=== PATIENT | female | born 1940 | race Caucasian/White ===

== ENCOUNTER 2023-04-08 20:12 | Inpatient (IN) | payer BC, MEDICARE ==
[2023-04-08] MEDS ORDERED: NITROGLYCERIN OINT 1 INCH/GM PACKET TOPICAL STA (20:44)
[2023-04-08] MEDS ORDERED: ASPIRIN 81 MG PO STA (20:44)
[2023-04-08 20:58] LABS: Basophils % (A) 0 %; Eosinophils # (A) 0.1 k/uL (0-0.7); Eosinophils % (A) 1 %; HCT 48.4 % (34.0-46.0); HGB 16.1 gm/dL (11.4-16.0); Lymphocytes # (A) 1.7 k/uL (1.0-4.8); Lymphocytes % (A) 19 %; MCH 31.2 pg (25.0-35.0); MCHC 33.3 g/dL (31.0-37.0); MCV 93.8 fL (80.0-100.0); Mean Platelet Volume 7.9; Monocytes # (A) 0.6 k/uL (0-1.0); Monocytes % (A) 6 %; Neutrophils # (A) 6.6 k/uL (1.3-7.7); Neutrophils % (A) 72 %; Platelet Count 322 k/uL (150-450); RBC 5.16 m/uL (3.80-5.40); RDW 12.4 % (11.5-15.5); WBC 9.2 k/uL (3.8-10.6)
[2023-04-08 21:07] LABS: Partial Thromboplastin Time 23.9 sec (22.0-30.0); Prothrombin Time 10.2 sec (9.0-12.0)
[2023-04-08] MEDS ORDERED: DILTIAZEM 125 MG in SODIUM CHLORIDE 0.9% 100 ML IV SCH (21:15)
[2023-04-08 21:28] LABS: ALT 23 U/L (4-34); AST 56 U/L (14-36); African American GFR (CKD) 68 (>60 ml/min/1.73 sqM); Alkaline Phosphatase 55 U/L (38-126); Anion Gap 10 mmol/L; Blood Urea Nitrogen 20 mg/dL (7-17); Calcium 9.9 mg/dL (8.4-10.2); Carbon Dioxide 25 mmol/L (22-30); Chloride 98 mmol/L (98-107); Magnesium 1.9 mg/dL (1.6-2.3); Non-African American GFR(CKD) 59 (>60 ml/min/1.73 sqM); Potassium 5.2 mmol/L (3.5-5.1); Sodium 133 mmol/L (137-145); Total Bilirubin 1.3 mg/dL (0.2-1.3); Total Protein 8.4 g/dL (6.3-8.2)
[2023-04-08] MEDS ORDERED: LABETALOL 5 MG/ML VIAL MDV IVP STA (21:28)
[2023-04-08 21:48] LABS: Glucose 122 mg/dL (74-99)
--- NOTE | 2023-04-08 22:20 | XR ---
EXAMINATION TYPE: XR chest 2V DATE OF EXAM: 04/08/2023 9:56 PM COMPARISON: None TECHNIQUE: XR chest 2V Frontal and lateral views of the chest. CLINICAL INDICATION:Female, 82 years old with history of Chest Pain; FINDINGS: Lungs/Pleura: Prominent interstitial lung markings are seen scattered throughout the lungs. No eviden ce of focal consolidation, pneumothorax or pleural effusion. Pulmonary vascularity: Unremarkable. Heart/mediastinum: Cardiomediastinal silhouette is unremarkable. Musculoskeletal: No acute osseous pathology. IMPRESSION: No acute cardiopulmonary disease/process.
[2023-04-08] MEDS ORDERED: HEPARIN SODIUM 1,000 UN/ML (10ML VL) IV ONE (22:44)
[2023-04-08] MEDS ORDERED: HEPARIN SODIUM 1,000 UN/ML (10ML VL) IV PRN (22:44)
--- NOTE | 2023-04-08 22:47 | ED ---
Chest Pain HPI - General Chief Complaint: Chest Pain Stated Complaint: Chest Pain Time Seen by Provider: 04/08/23 20:33 Source: patient Mode of arrival: ambulatory Limitations: no limitations - History of Present Illness Initial Comments: This 82-year-old female presents with complaint of some chest pressure. This is in the midsternal region. She also was feeling somewhat weak. This occurred shortly prior to arrival. She does present with elevated heart rate mode appears to be atrial fibrillation with rapid ventricular response. She denies any history of atrial fibrillation or any history of previous cardiac arrhythmias. She denies any nausea, vomiting, fevers, chills. She does complain of some mild shortness of breath. The pain did apparently radiate up into her jaw region. She relates a history of previous myocardial infarction in 2008 with 4 cardiac stents placed at that time. She has followed up with a associate professor in the past and had a negative stress test in the fall of 2021. She has an appointment to follow-up with Dr. Infante next month. She denies any leg pain or swelling or history DVT or PE. No other complaints or modifying factors. - Related Data Home Medications Medication Instructions Recorded Confirmed Brinzolamide/Brimonidine Tart 1 drop RIGHT EYE BID 04/08/23 04/08/23 [Simbrinza 1%-0.2% Eye Drops] Ezetimibe [Zetia] 10 mg PO HS 04/08/23 04/08/23 Latanoprost [Latanoprost 0.005%] 1 drop RIGHT EYE HS 04/08/23 04/08/23 Olmesartan Medoxomil [Benicar] 40 mg PO HS 04/08/23 04/08/23 Allergies Allergy/AdvReac Type Severity Reaction Status Date / Time nickel Allergy Rash/Hives Verified 04/08/23 22:26 [id number] Reductase AdvReac Muscle/Joint Verified 04/08/23 22:26 Inhibitor pain all over Review of Systems ROS Statement: Those systems with pertinent positive or pertinent negative responses have been documented in the HPI. ROS Other: All systems not noted in ROS Statement are negative. Past Medical History Past Medical History: Coronary Artery Disease (CAD), Hyperlipidemia, Hypertension Additional Past Medical History / Comment(s): scoliosis History of Any Multi-Drug Resistant Organisms: None Reported Past Surgical History: Heart Catheterization With Stent Past Psychological History: No Psychological Hx Reported Smoking Status: Never smoker Past Alcohol Use History: None Reported Past Drug Use History: None Reported General Exam - General Exam Comments Initial Comments: GENERAL: The patient is well nourished and well hydrated. VITAL SIGNS: Heart rate, blood pressure, respiratory rate reviewed as recorded in nurse's notes. EYES: Pupils are round and reactive. Extraocular movements are intact. No conjunctival / lid redness or swelling. ENT: No external evidence of injury, swelling, or ecchymosis. Airway is patent. Throat is clear. NECK: Nontender. No swelling or evidence of injury. No subcutaneous emphysema. Trachea is midline. No thyroid mass. HEART: Tachycardic irregular rate which later resolved. Good peripheral pulses. LUNGS/CHEST: Breath sounds clear and equal bilaterally. No rales, rhonchi, or wheezes. No ecchymosis, subcutaneous emphysema, or tenderness. ABDOMEN: Abdomen soft without tenderness. No palpable masses or organomegaly. No peritoneal signs. No abdominal wall swelling or ecchymosis. EXTREMITIES: No extremity tenderness. Normal muscle tone and function. No thoracolumbar tenderness. NEUROLOGIC: Sensation is grossly intact. Cranial nerve exam reveals face is symmetrical, tongue is midline, speech is clear. SKIN: No abrasions or ecchymosis is noted. No induration or masses noted. PSYCHIATRIC: Alert and oriented. Appropriate behavior and judgment. Limitations: no limitations Course Vital Signs 04/08/23/04/25 06/04/25 20:13 21:15 21:40 Temperature 98.0 F Pulse Rate 99 86 68 Respiratory 20 20 22 Rate Blood Pressure 181/113 198/118 173/85 O2 Sat by Pulse 98 98 98 Oximetry Chest Pain MDM - MDM The patient was seen and examined. All diagnostics were reviewed. When she initially presented, cafeteria monitor does show a tachycardic and somewhat irregular rhythm. The EKG shows atrial fibrillation with rapid ventricular response at a rate of 133. His wide complex QRSs as well per minute drip rotation. The patient has associated ST and T-wave changes likely rate dependent. The QRS duration is 152 and the QTc interval is 399. Prior to s tarting a Cardizem drip, her cardiac arrhythmia spontaneously resolves. She has a repeat EKG which shows a normal sinus rhythm at a rate of 66 with sinus arrhythmia. There is no acute ST or T wave changes noted per my interpretation. There is no ST elevation. The [place] interval is 160, QRS duration is 82, and the QTC intervals 463. Her blood pressure was severely elevated and she does receive labetalol 20 mg IV. She also receives aspirin as well as Nitropaste. Her laboratory shows elevation of her troponin which potentially could be related to the tachycardic event. The possibility of a non-ST elevation myocardial infarction certainly is plausible as well. She started on a heparin drip. Chest x-ray does not show any acute processes per my interpretation and radiologists barely does agree as well. On recheck after spontaneous conversion, she relates that her symptoms have all resolved and she feels back to normal at this time. It is felt as though she benefit from admission to the hospital. She is agreeable with this plan. Case is discussed with internal medicine and they're agreeable to admission. Her blood pressure was significantly improved as well. Cardiology will be consulted. Was pt. sent in by a medical professional or institution (, PA, PIGMENT PUMPER, urgent care, hospital, or senior living...) When possible be specific @ -No Did you speak to anyone other than the patient for history (EMS, parent, family, police, friend...)? What history was obtained from this source @ -Patient's family member also helps with history. Did you review nursing and triage notes (agree or disagree)? Why? @ -I reviewed and agree with nursing and triage notes Were old charts reviewed (outside hosp., previous admission, EMS record, old EKG, old radiological studies, urgent care reports/EKG's, senior living records)? Report findings @ -No old charts were reviewed Differential Diagnosis (chest pain, altered mental status, abdominal pain women, abdominal pain men, vaginal bleeding, weakness, fever, dyspnea, syncope, headache, dizziness, GI bleed, back pain, seizure, CVA, palpatations, mental health, musculoskeletal)? @ -Atrial fibrillation, ventricular tachycardia, atrial fibrillation with rapid ventricular response, chest pain, non-ST elevation myocardial infarction, hypertensive crisis EKG interpreted by me (3pts min.). @ -As above X-rays interpreted by me (1pt min.). @ -Negative CT interpreted by me (1pt min.). @ -None done U/S interpreted by me (1pt. min.). @ -None done What testing was considered but not performed or refused? (CT, X-rays, U/S, labs)? Why? @ -None What meds were considered but not given or refused? Why? @ -Heart is in drip was considered but not started as patient spontaneously converted. Did you discuss the management of the patient with other professionals (professionals i.e. , PA, PIGMENT PUMPER, lab, RT, psych nurse, social services manager, lump receiver, teacher, uniform patrol police officer, special education case manager)? Give summary @ -This is discussed with Dr. Helton who is agreeable with admission. Was smoking cessation discussed for >3mins.? @ -No Was critical care preformed (if so, how long)? @ -30 minutes of critical care time was utilized and the treatment of the patient. Were there social determinants of health that impacted care today? How? (Homelessness, low income, unemployed, alcoholism, drug addiction, transportation, low edu. Level, literacy, decrease access to med. care, nursing home, rehab)? @ -No Was there de-escalation of care discussed even if they declined (Discuss DNR or withdrawal of care, Hospice)? DNR status @ -No What co-morbidities impacted this encounter? (DM, HTN, Smoking, COPD, CAD, Cancer, CVA, ARF, Chemo, Hep., AIDS, mental health diagnosis, sleep apnea, morbid obesity)? @ -Myocardial infarction and coronary artery disease with 4 previous cardiac stents. Was patient admitted / discharged? Hospital course, mention meds given and route, prescriptions, significant lab abnormalities, going to OR and other pertinent info. @ -Patient is admitted with cardiology to consult. Undiagnosed new problem with uncertain prognosis? @ -No Drug Therapy requiring intensive monitoring for toxicity (Heparin, Nitro, Insulin, Cardizem)? @ -No Were any procedures done? @ -No Diagnosis/symptom? @ -Atrial fibrillation with rapid ventricular response, non-ST elevation myocardial infarction, hypertensive crisis Acute, or Chronic, or Acute on Chronic? @ -Acute Uncomplicated (without systemic symptoms) or Complicated (systemic symptoms)? @ -Complicated Side effects of treatment? @ -No Exacerbation, Progression, or Severe Exacerbation? @ -No Poses a threat to life or bodily function? How? (Chest pain, [place], [place], pneumonia, PE, COPD, DKA, ARF, appy, cholecystitis, CVA, Diverticulitis, Homicidal, Suicidal, threat to staff... and all critical care pts) @ -Yes a cardiac arrhythmia presents to threat to life and bodily function. Disposition Clinical Impression: Acute non-ST elevation myocardial infarction (NSTEMI), Atrial fibrillation with rapid ventricular response, Hypertensive crisis, Chest pain Disposition: ADMITTED IP TO THIS HOSP Condition: Fair Is patient prescribed a controlled substance at d/c from ED?: No Time of Disposition: 22:46 Decision Date: 04/08/23 Decision Time: 22:47
[2023-04-08] MEDS: HEPARIN SOD,PORK IN 0.45% NACL 25,000 UNIT in 0.45% NACL 1 250ML.BAG IV SCH (23:09)
[2023-04-08] MEDS ORDERED: NITROGLYCERIN SL TABS 0.4 MG TAB SUBLINGUAL PRN (23:13)
--- NOTE | 2023-04-09 00:44 | P.HPIM ---
History of Present Illness H&P Date: 04/09/23 The patient is an 82-year-old female with a PMH of CAD status post 4 stents, hypertension, and upper lipidemia who presents to the emergency room with complaints of chest pain, shortness of breath, and jaw pain. Patient reports that her symptoms started around 5:30 PM earlier today while she was out shopping. She reports that she suddenly developed severe shortness of breath and chest tightness. The symptoms lasted for about 30 minutes and she then developed jaw claudication subsequently also lasted for about 15-20 minutes before resolving spontaneously. At time of interview, she reports feeling at her baseline and had no complaints. Denied experiencing fever or chills. Denied cough, nausea, vomiting, melena, diarrhea. Denied lower extremity swelling or pain. EKG in the emergency room and initially revealed A. fib with RVR at 133 bpm with a left bundle branch block. Subsequent EKG revealed sinus rhythm with sinus arrhythmia at 66 bpm. CXR was unremarkable. Laboratory evaluation revealed a troponin of 0.727, proBNP 1400, Humulin 16.1, sodium 133, potassium 5.2, BUN 20, glucose 122. ED documentation reviewed and case discussed with ED provider. Review of systems: Pertinent positives and negatives as discussed in HPI, a complete review of systems was performed and all other systems are negative. Physical examination: Vital signs reviewed General: non toxic, no distress, appears at stated age, overweight Derm: no unusual rashes/lesions, warm Head: atraumatic, normocephalic, symmetric Eyes: EOMI, no lid lag, anicteric sclera, pupils equal round reactive to light ENT: Nose and ears atraumatic Neck: No cervical lymphadenopathy, trachea midline, supple Mouth: no lip lesion, mucus membranes moist Cardiovascular: S1S2 reg, no murmur, positive dorsalis pedis pulse bilateral, no edema Lungs: CTA bilateral, no rhonchi, no rales, no accessory muscle use Abdominal: soft, nontender to palpation, no guarding Ext: muscle strength 5 out of 5 in all 4 extremities grossly, no gross muscle atrophy, no contractures, Neuro: CN II-XI grossly intact, no gross focal neuro deficits Psych: Alert, oriented, appropriate affect Assessment: NSTEMI Chronic conditions: HTN, HLD Imaging: EKG in the emergency room and initially revealed A. fib with RVR at 133 bpm with a left bundle branch block. Subsequent EKG revealed sinus rhythm with sinus arrhythmia at 66 bpm. CXR was unremarkable. Data Review: Laboratory evaluation revealed a troponin of 0.727, proBNP 1400, Humulin 16.1, sodium 133, potassium 5.2, BUN 20, glucose 122. Plan: Continue with heparin infusion Cardiac monitoring Trend troponin Cardiogenic consulted Echocardiogram Continue aspirin Continue the remaining home medications DVT prophylaxis: Heparin infusion The patient is admitted with an anticipated greater than 2 midnight stay for evaluation of NSTEMI CODE STATUS: Full Code Discussed with: Patient Anticipated discharge place: Home Past Medical History Past Medical History: Coronary Artery Disease (CAD), Hyperlipidemia, Hypertension Additional Past Medical History / Comment(s): scoliosis History of Any Multi-Drug Resistant Organisms: None Reported Past Surgical History: Heart Catheterization With Stent Past Psychological History: No Psychological Hx Reported Smoking Status: Never smoker Past Alcohol Use History: None Reported Past Drug Use History: None Reported - Past Family History Brother(s) Family Medical History: Congestive Heart Failure (CHF), Coronary Artery Disease (CAD) Medications and Allergies Home Medications Medication Instructions Recorded Confirmed Type Brinzolamide/Brimonidine Tart 1 drop RIGHT EYE BID 04/08/23 04/08/23 History [Simbrinza 1%-0.2% Eye Drops] Ezetimibe [Zetia] 10 mg PO HS 04/08/23 04/08/23 History Latanoprost [Latanoprost 0.005%] 1 drop RIGHT EYE HS 04/08/23 04/08/23 History Olmesartan Medoxomil [Benicar] 40 mg PO HS 04/08/23 04/08/23 History Allergies Allergy/AdvReac Type Severity Reaction Status Date / Time nickel Allergy Rash/Hives Verified 04/08/23 22:26 [id number] Reductase AdvReac Muscle/Joint Verified 04/08/23 22:26 Inhibitor pain all over Physical Exam Vitals: Vital Signs Temp Pulse Resp BP Pulse Ox 04/08/23 21:40 68 22 173/85 98 04/08/23 21:15 86 20 198/118 98 04/08/23 20:13 98.0 F 99 20 181/113 98 Intake and Output 04/08/23 04/08/23 04/09/23 14:59 22:59 06:59 Other: Weight 76.204 kg Results CBC & Chem 7: 04/08/23 20:51 04/08/23 20:51 Labs: Abnormal Lab Results - Last 24 Hours (Table) 04/08/23 04/08/23 04/08/23 Range/Units 20:51 20:51 20:51 Hgb 16.1 H (11.4-16.0) gm/dL Hct 48.4 H (34.0-46.0) % Sodium 133 L (137-145) mmol/L Potassium 5.2 H (3.5-5.1) mmol/L BUN 20 H (7-17) mg/dL Glucose 122 H (74-99) mg/dL AST 56 H (14-36) U/L Troponin I 0.727 H* (0.000-0.034) ng/mL Total Protein 8.4 H (6.3-8.2) g/dL
[2023-04-09] MEDS: NITROGLYCERIN OINT 1 INCH/GM PACKET TOPICAL SCH ×3 (01:04→15:24)
[2023-04-09 05:27] LABS: Basophils % (A) 0 %; Eosinophils # (A) 0.1 k/uL (0-0.7); Eosinophils % (A) 1 %; HCT 42.2 % (34.0-46.0); HGB 13.9 gm/dL (11.4-16.0); Lymphocytes # (A) 2.8 k/uL (1.0-4.8); Lymphocytes % (A) 38 %; MCH 31.5 pg (25.0-35.0); MCHC 33.1 g/dL (31.0-37.0); MCV 95.2 fL (80.0-100.0); Monocytes # (A) 0.5 k/uL (0-1.0); Monocytes % (A) 7 %; Neutrophils # (A) 3.7 k/uL (1.3-7.7); Neutrophils % (A) 51 %; Platelet Count 294 k/uL (150-450); RBC 4.43 m/uL (3.80-5.40); RDW 12.4 % (11.5-15.5); WBC 7.3 k/uL (3.8-10.6)
[2023-04-09 05:54] LABS: INR 1.1 (<1.2)
[2023-04-09 06:30] LABS: Partial Thromboplastin Time 103.9 sec (22.0-30.0)
[2023-04-09] MEDS ORDERED: ASPIRIN 325 MG TAB PO SCH (09:00)
[2023-04-09] MEDS: METOPROLOL TARTRATE 25 MG TAB PO SCH ×2 (09:12→21:23)
[2023-04-09] MEDS: ASPIRIN 81 MG PO SCH (09:12)
[2023-04-09] MEDS: BRIMONIDINE TARTRATE 0.2% DROPS 5 ML BTL RIGHT EYE SCH ×2 (09:22→21:25)
[2023-04-09] MEDS: LOSARTAN 50 MG TAB PO SCH (09:23)
[2023-04-09] MEDS: DORZOLAMIDE HCL 2% DROPS 10 ML BTL RIGHT EYE SCH ×2 (09:23→21:25)
[2023-04-09] MEDS ORDERED: ASPIRIN 325 MG TAB PO STA (09:39)
[2023-04-09] MEDS ORDERED: NITROGLYCERIN SL TABS 0.4 MG TAB SUBLINGUAL PRN (09:39)
[2023-04-09] MEDS ORDERED: ALPRAZolam 0.25 MG TAB PO PRN (09:39)
[2023-04-09] MEDS ORDERED: ALPRAZolam 0.5 MG TAB PO PRN (09:39)
[2023-04-09] MEDS ORDERED: HEPARIN SODIUM 1,000 UN/ML (10ML VL) ONE (09:56)
[2023-04-09] MEDS ORDERED: VERAPAMIL 2.5 MG/ML 2 ML AMP ONE (09:56)
[2023-04-09] MEDS ORDERED: fentaNYL (PF) 50 MCG/ML 2 ML AMP ONE (09:56)
--- NOTE | 2023-04-09 10:42 | CA ---
Transthoracic Echo Report Name: Deborah Werner Age: 82 Gender: F : 1940 Exam Date: 04/09/2023 08:07 Exam Location: [facility] Ht (in): 67 Wt (lb): 168 Ordering Physician: Juan Miguel Moore DO Attending/Referring Phys: [id number], Teresa Cupola Charger Daryl Otto Procedure CPT: Indications: CP Cardiac Hx: Technical Quality: Good Contrast 1: Total Dose (mL): Contrast 2: Total Dose (mL): MEASUREMENTS (Male / Female) Normal Values 2D ECHO LV Diastolic Diameter PLAX 4.2 cm 4.2 - 5.9 / 3.9 - 5.3 cm IVS Diastolic Thickness 1.3 cm 0.6 - 1.0 / 0.6 - 0.9 cm LVPW Diastolic Thickness 1.4 cm 0.6 - 1.0 / 0.6 - 0.9 cm LV Relative Wall Thickness 0.6 RV Internal Dim ED PLAX 2.7 cm LVOT Diameter 2.0 cm Aortic Root Diameter 3.4 cm LA Systolic Diameter LX 1.9 cm 3.0 - 4.0 / 2.7 - 3.8 cm LV Diastolic Volume MOD BP 56.9 cm??? 67 - 155 / 56 - 104 cm??? LV Systolic Volume MOD BP 27.4 cm??? 22 - 58 / 19 - 49 cm??? LV Ejection Fraction MOD BP 51.9 % >= 55 % LV Diastolic Volume MOD 4C 54.5 cm??? LV Systolic Volume MOD 4C 26.5 cm??? LV Ejection Fraction MOD 4C 51.3 % LV Diastolic Length 4C 6.1 cm LV Systolic Length 4C 6.0 cm LV Diastolic Volume MOD 2C 55.2 cm??? LV Systolic Volume MOD 2C 26.9 cm??? LV Ejection Fraction MOD 2C 51.3 % LV Diastolic Length 2C 6.7 cm LV Systolic Length 2C 5.7 cm LA Volume 76.1 cm??? 18 - 58 / 22 - 52 cm??? DOPPLER AV Peak Velocity 144.4 cm/s AV Peak Gradient 8.3 mmHg LVOT Peak Velocity 76.2 cm/s LVOT Peak Gradient 2.3 mmHg AV Area Cont Eq pk 1.7 cm??? MV Peak Velocity 113.9 cm/s MV Peak Gradient 5.2 mmHg MV Mean Velocity 53.7 cm/s MV Mean Gradient 1.5 mmHg MV Velocity Time Integral 46.6 cm MR Peak Velocity 528.2 cm/s MR Peak Gradient 111.6 mmHg Mitral E Point Velocity 99.3 cm/s Mitral A Point Velocity 96.1 cm/s Mitral E to A Ratio 1.0 MV Deceleration Time 339.0 ms MV E' Velocity 3.9 cm/s Mitral E to MV E' Ratio 25.3 TR Peak Velocity 250.6 cm/s TR Peak Gradient 25.1 mmHg Right Ventricular Systolic Press 30.5 mmHg PV Peak Velocity 102.5 cm/s PV Peak Gradient 4.2 mmHg FINDINGS Left Ventricle Left ventricular ejection fraction is estimated at _50-55 %. Mild Conc LVH. Right Ventricle Normal right ventricular size. RVSP= 39mmhg. Right Atrium Normal right atrial size. Left Atrium Normal left atrial size. Mitral Valve Mild MV thickening. Mild to moderate MR.No mitral stenosis. Aortic Valve Mild AV calcification.no aortic valve stenosis or regurgitation. Tricuspid Valve Structurally normal tricuspid valve. Mild TR. Pulmonic Valve Structurally normal pulmonic valve. Trace PI. Pericardium Normal pericardium. Aorta Normal size aortic root and proximal ascending aorta. CONCLUSIONS Normal LV systolic function [id number] mitral regurgitation Previewed by: Dr. Richard Infante MD (Electronically Signed) Final Date: 09 April 2023 10:41
[2023-04-09] MEDS: MIDAZOLAM 2 MG/2 ML VIAL IVP ONE ×2 (10:52→11:46)
[2023-04-09] MEDS: fentaNYL (PF) 50 MCG/ML 2 ML AMP IVP ONE ×2 (10:52→11:45)
[2023-04-09] MEDS ORDERED: LIDOCAINE 1% INJ 10MG/ML (5 ML VIAL-PF) SQ ONE (10:53)
[2023-04-09] MEDS: VERAPAMIL SYRINGE (5 MG/10 ML) INTRAARTER ONE ×2 (10:54→10:59)
[2023-04-09] MEDS ORDERED: VERAPAMIL SYRINGE (5 MG/10 ML) INTRAARTER ONE (10:59)
[2023-04-09] MEDS ORDERED: SODIUM CHLORIDE 0.9% 500 ML 500 ML IV ONE (11:00)
[2023-04-09] MEDS: HEPARIN SODIUM 1,000 UN/ML (10ML VL) IVP ONE ×3 (11:04→11:30)
[2023-04-09] MEDS ORDERED: CLOPIDOGREL 75 MG TAB ONE (11:21)
[2023-04-09] MEDS ORDERED: CLOPIDOGREL 75 MG TAB PO ONE (11:26)
[2023-04-09] MEDS ORDERED: hydrALAZINE HCL 20 MG/ML 1 ML VIAL ONE (11:37)
[2023-04-09] MEDS: hydrALAZINE HCL 20 MG/ML 1 ML VIAL IVP ONE ×2 (11:38→11:47)
[2023-04-09 11:51] LABS: Chol/HDL Ratio 3.83 Ratio; LDL Cholesterol,Calculated 142.2 mg/dL (0.0-131.0)
[2023-04-09] MEDS ORDERED: NITROGLYCERIN 1000MCG/10ML SYRINGE INTRAARTER ONE (11:51)
[2023-04-09] MEDS ORDERED: IOPAMIDOL-370 100ML BTL INJ ONE ×2 (11:51→11:58)
[2023-04-09] MEDS ORDERED: ZOLPIDEM 5 MG TAB PO PRN (12:19)
[2023-04-09] MEDS ORDERED: RX INFO: IV CONTRAST WAS GIVEN 1 EACH MISC MISCELLANE PRN (12:19)
[2023-04-09] MEDS ORDERED: ATROPINE SULFATE 0.1 MG/ML 10ML SYRINGE IV PRN (12:19)
[2023-04-09] MEDS ORDERED: MAG HYDROX/AL HYDROX/SIMETH 30 ML CUP PO PRN (12:19)
--- NOTE | 2023-04-09 12:21 | P.CRDCN ---
History of Present Illness Consult date: 04/09/23 Reason for Consult (text): Hypertensive crisis, non-ST elevated RI, atrial fibrillation History of present illness: History of present illness: This is an 82-year-old female but does not follow with local cobol application developer. She was previously following with the cobol application developer in [place] and has not appointment to be stat established with Dr. Infante in May. Patient has past medical history of myocardial infarction and 4 stents placed in 2008 in [place], reported carotid stenosis, atrial fibrillation following [place] not currently on any medications for this, hypertension. Patient states that she has had increasing dyspnea on exertion worsening over the past year. She was able to walk 8-10 blocks and now can only make it to the mailbox. Yesterday, she was walking out of [facility] and developed significant jaw pain and felt like her teeth were going to fall out continue patient on aspirin 81 mg daily, Lopressor 25 mg twice daily. She denies any chest pain. She had significant shortness of breath with the jaw pain. No lightheadedness or dizziness, no nausea. She denies feeling any palpitations or racing heart. She denies history of smoking no alcohol abuse. There is a strong family history of coronary artery disease. Patient presented with A. fib with RVR and converted while in the emergency center not requiring Cardizem drip. Patient is seen today in the emergency center waiting for a bed on the cardiac stepdown unit. EKG initial A. fib with RVR 133 bpm, repeat sinus rhythm with nonspecific ST changes Chest x-ray: No acute process CBC within normal limits. Sodium 133, potassium 5.2, chloride 98, CO2 25, BUN 20 creatinine 0.92. Troponin 0.77, 6.52, I'm 0.46, 11.6. ProBNP 1400. Triglycerides 102, cholesterol 220, LDL 142, HDL 57 Echocardiogram 04/09/2023: EF 50-55%, [id number] mitral regurgitation. Home cardiac medications: Zetia 10 mg at bedtime, Benicar 40 mg at bedtime Review Of Systems: At the time of my evaluation: Constitutional: No fever, no chills. No weakness, fatigue or lethargy. EENT: No headache. No dizziness. Lungs: No shortness of breath, cough, no sputum production. No wheezing. Cardiovascular: No chest pain, no lower extremity edema. No palpitations. No paroxysmal nocturnal dyspnea. No orthopnea. No lightheadedness or dizziness. No syncopal episodes. Abdominal: No abdominal pain. No nausea, vomiting. No diarrhea. No constipation. No bloody or tarry stools. Genitourinary: No dysuria.. No urinary retention. Musculoskeletal: No myalgias. No muscle weakness, no frequent falls. No back pain. No neck pain. Integumentary: No wounds. No rash. No unusual bruising. Neurologic: No aphasia. No facial droop. No change in mentation. No head injury. No headache. Physical examination: Gen: This is an 82 year old female. She is resting on ER stretcher and appears to be comfortable and in no acute distress VS: reviewed HEENT: Head is atraumatic, normocephalic. Pupils equal, round. Sclerae is anicteric. NECK: Supple. No JVD. LUNGS: Clear to auscultation. No wheezes or rhonchi. No intercostal retractions. HEART: Regular rate and rhythm. Systolic urmur. ABDOMEN: Soft No tenderness. EXTREMITIES: No pedal edema. No calf tenderness. NEUROLOGICAL: Patient is awake, alert and oriented x3. Assessment: A. fib with RVR, paroxysmal atrial fibrillation Non-ST elevated myocardial infarction Hypertension Hyperlipidemia unable to tolerate statin History of coronary artery disease and stent placement 4 Plan: Schedule patient for cardiac catheterization today with Dr. Henning Continue patient on aspirin 81 mg daily, Zetia 10 mg daily, patient unable to tolerate statin Continue losartan 100 mg daily and Lopressor 25 mg twice daily Discontinue nitro paste Further recommendations to follow based upon clinical course Thank you kindly for this consultation. Nurse practitioner note has been reviewed, I agree with documented findings and plan of care. Patient was seen and examined. Past Medical History Past Medical History: Coronary Artery Disease (CAD), Hyperlipidemia, Hypertension Additional Past Medical History / Comment(s): scoliosis History of Any Multi-Drug Resistant Organisms: None Reported Past Surgical History: Heart Catheterization With Stent Past Psychological History: No Psychological Hx Reported Smoking Status: Never smoker Past Alcohol Use History: None Reported Past Drug Use History: None Reported - Past Family History Brother(s) Family Medical History: Congestive Heart Failure (CHF), Coronary Artery Disease (CAD) Medications and Allergies Home Medications Medication Instructions Recorded Confirmed Type Brinzolamide/Brimonidine Tart 1 drop RIGHT EYE BID 04/08/23 04/08/23 History [Simbrinza 1%-0.2% Eye Drops] Ezetimibe [Zetia] 10 mg PO HS 04/08/23 04/08/23 History Latanoprost [Latanoprost 0.005%] 1 drop RIGHT EYE HS 04/08/23 04/08/23 History Olmesartan Medoxomil [Benicar] 40 mg PO HS 04/08/23 04/08/23 History Allergies Allergy/AdvReac Type Severity Reaction Status Date / Time nickel Allergy Rash/Hives Verified 04/08/23 22:26 [place]-AFE-KqK Reductase AdvReac Muscle/Joint Verified 04/08/23 22:26 Inhibitor pain all over Physical Exam Vitals: Vital Signs Temp Pulse Resp BP Pulse Ox 04/09/23 09:00 66 18 169/72 97 04/09/23 06:00 67 17 150/86 96 04/09/23 05:00 71 18 145/73 97 04/09/23 04:00 63 15 145/82 96 04/09/23 03:00 70 20 150/78 95 04/09/23 02:00 63 18 147/74 96 04/09/23 01:00 71 18 145/72 96 04/09/23 00:30 58 L 18 135/73 97 04/09/23 00:00 67 140/73 96 04/08/23 23:57 58 L 140/73 96 04/08/23 21:40 68 22 173/85 98 04/08/23 21:15 86 20 198/118 98 04/08/23 20:13 98.0 F 99 20 181/113 98 Intake and Output 04/08/23 04/09/23 04/09/23 22:59 06:59 14:59 Intake Total 67.361 0 Balance 67.361 0 Intake: Intake, IV Titration 67.361 0 Amount Heparin Sod,Pork in 0.45% 67.361 0 NaCl 25,000 unit In 0.45 % NaCl 1 250ml.bag @ 12 UNITS/KG/HR 9.144 mls/hr IV .Q24H [facility] Rx#: [id number] Other: Weight 76.204 kg Results 04/09/23 05:09 04/08/23 20:51 Cardiac Enzymes 04/08/23 04/08/23 04/09/23 Range/Units 20:51 20:51 00:11 AST 56 H (14-36) U/L Troponin I 0.727 H* 6.520 H* (0.000-0.034) ng/mL 04/09/23 04/09/23 Range/Units 02:20 05:09 AST (14-36) U/L Troponin I 9.460 H* 11.600 H* (0.000-0.034) ng/mL Coagulation 04/08/23 04/09/23 Range/Units 20:51 05:09 PT 10.2 11.0 (9.0-12.0) sec APTT 23.9 103.9 H* (22.0-30.0) sec CBC 04/08/23 04/09/23 Range/Units 20:51 05:09 WBC 9.2 7.3 (3.8-10.6) k/uL RBC 5.16 4.43 (3.80-5.40) m/uL Hgb 16.1 H 13.9 (11.4-16.0) gm/dL Hct 48.4 H 42.2 (34.0-46.0) % Plt Count 322 294 (150-450) k/uL Comprehensive Metabolic Panel 04/08/23 Range/Units 20:51 Sodium 133 L (137-145) mmol/L Potassium 5.2 H (3.5-5.1) mmol/L Chloride 98 (98-107) mmol/L Carbon Dioxide 25 (22-30) mmol/L BUN 20 H (7-17) mg/dL Creatinine 0.92 (0.52-1.04) mg/dL Glucose 122 H (74-99) mg/dL Calcium 9.9 (8.4-10.2) mg/dL AST 56 H (14-36) U/L ALT 23 (4-34) U/L Alkaline Phosphatase 55 (38-126) U/L Total Protein 8.4 H (6.3-8.2) g/dL Albumin 5.0 (3.5-5.0) g/dL Current Medications Generic Name Dose Route Start Last Admin Trade Name Freq PRN Reason Stop Dose Admin Aspirin 81 mg 04/09/23 09:00 04/09/23 09:12 Aspirin 81 Mg PO 81 mg DAILY [facility] Administration Brimonidine Tartrate 1 drops 04/09/23 09:00 04/09/23 09:22 Brimonidine Tartrate 0.2% Drops 5 Ml Btl RIGHT EYE 1 drops BID [facility] Administration Dorzolamide HCl 1 drops 04/09/23 09:00 04/09/23 09:23 Dorzolamide Hcl 2% Drops 10 Ml Btl RIGHT EYE 1 drops BID [facility] Administration Ezetimibe 10 mg 04/09/23 21:00 Ezetimibe 10 Mg Tab PO HS [facility]YN Heparin Sodium (Porcine) 0 unit 04/08/23 22:44 Heparin Sodium 1,000 Un/Ml (10ml Vl) IV PER PROTOCOL PRN Low PTT Protocol Diltiazem HCl 125 mg/ Sodium 125 mls @ 0 mls/hr 04/08/23 21:15 Chloride IV .Q0M [facility]YN Protocol Per Protocol Heparin Sodium/Sodium Chloride 250 mls @ 9.144 mls/hr 04/08/23 22:45 04/09/23 09:04 25,000 unit/ Sodium Chloride IV 12 units/kg/hr .Q24H [facility] 9.144 mls/hr Titration Protocol 12 UNITS/KG/HR Latanoprost 1 drops 04/09/23 21:00 Latanoprost 0.005% Ophth Drops 2.5 Ml Btl RIGHT EYE HS [facility] Losartan Potassium 100 mg 04/09/23 09:15 04/09/23 09:23 Losartan 50 Mg Tab PO 100 mg DAILY ROBYN Administration Metoprolol Tartrate 25 mg 04/09/23 09:00 04/09/23 09:12 Metoprolol Tartrate 25 Mg Tab PO 25 mg BID [facility] Administration Nitroglycerin 0.4 mg 04/08/23 23:13 Nitroglycerin Sl Tabs 0.4 Mg Tab SUBLINGUAL Q5M PRN Chest Pain Nitroglycerin 1 inch 04/09/23 00:00 04/09/23 06:23 Nitroglycerin Oint 1 Inch/Gm Packet TOPICAL 1 inch Q6HR [facility] Administration Intake and Output 04/08/23 04/09/23 04/09/23 22:59 06:59 14:59 Intake Total 67.361 0 Balance 67.361 0 Intake: Intake, IV Titration 67.361 0 Amount Heparin Sod,Pork in 0.45% 67.361 0 NaCl 25,000 unit In 0.45 % NaCl 1 250ml.bag @ 12 UNITS/KG/HR 9.144 mls/hr IV .Q24H [facility] Rx#: [id number] Other: Weight 76.204 kg 04/09/23 05:09 04/08/23 20:51
--- NOTE | 2023-04-09 12:23 | P.PRCINT ---
Percutaneous Coronary Int. - Percutaneous Coronary Intervention Percutaneous Coronary Intervention: PROCEDURES PERFORMED: Left heart catheterization, bilateral coronary angiography, PCI mid to distal RCA with a 2.25 x 38mm Xience KELVIN, post dilated and balloon angioplasty instent stenosis with a 3.0 NC balloon, IVUS RCA INDICATION: Non-STEMI CONSENT:I have discussed the risks, benefits and alternative therapies for the above-mentioned procedure and for both sedation/analgesia as well as necessary blood product administration, if indicated, as they pertain to this patient. The patient has indicated understanding and acceptance of the risks and procedures discussed. PROCEDURE: After the risks, benefits and alternatives of the above mentioned procedure explained in detail with the patient, informed consent was obtained. Patient was taken to the catheterization lab and prepped and draped in usual fashion. 1% lidocaine was used to anesthetize the right radial artery. A 6- Azerbaijani sheath was placed in the right radial artery using modified Seldinger technique. Left coronary angiography was performed with a 5-Azerbaijani JL 3.5 and then 4.0 ncatheter and right coronary angiography was performed with a 5-Azerbaijani AR2 catheter in various views. A 5-Azerbaijani FR5 catheter was inserted into the left ventricle and pressure measurements were obtained. The decision was made to perform PCI of the RCA. Heparin was given for ACT greater than 250. A 6-Azerbaijani AL 0.75 guide was used to engage the RCA. A 0.014 BMW wire was advanced into the distal RCA. Next using the help of a Guideliner, and angioplasty was performed with 1.0 balloon. Next balloon angioplasty was performed with a 2.0 noncompliant balloon. Intravascular ultrasound was performed which showed a distal dissection around the site of the distal plaque, heavy calcification and reference vessel proximally approximately 4.0 cm and in the mid stent diffuse in-stent stenosis. Therefore a 2.25 x 38 mm Xience KELVIN was placed overlapping the existing stent. The stent was postdilated with a 3.0 noncompliant balloon. Repeat intravascular ultrasound was performed which showed good stent apposition, no dissection. The wire was pulled and final angiograms were performed. Pre-intervention there is 99% stenosis and CRUZ-3 flow and postintervention there was less than 10% stenosis with CRUZ 3 flow. The right radial sheath was removed and a TR band was placed with hemostasis achieved. The patient tolerated the procedure well. Patient was transported back to the post catheterization holding area in stable condition. Conscious Sedation: Patient was monitored under the direct supervision of myself for conscious sedation using Versed and fentanyl for a total duration of 68 minutes HEMODYNAMICS: Aorta: 172/63 LV: 171/3, LVEDP 16 SELECTIVE CORONARY ARTERIOGRAPHY: LEFT MAIN: The left main is a large caliber vessel which bifurcates into the LAD and circumflex. There is mild plaquing of the left main. LEFT ANTERIOR DESCENDING CORONARY ARTERY: LAD is a large caliber vessel which wraps around to the apex. There is diffuse proximal 30-40% stenosis of the LAD and a mid LAD 90% stenosis involving a small to moderate caliber diagonal branch. Otherwise there are mild luminal irregularities. LEFT CIRCUMFLEX CORONARY ARTERY: Left circumflex is a moderate caliber vessel. There is a small caliber OM1 branch with a 60% stenosis. 1 to is moderate caliber and has a proximal 50-60% stenosis. The distal circumflex has a 90% stenosis. The distal circumflex gives off a small caliber OM 3 branch. There is a mid circumflex stent with 40-50% in-stent stenosis. RIGHT CORONARY ARTERY: The right coronary artery is a large caliber vessel which gives off a PDA and PLV branch and is the dominant vessel. There is a proximal and mid RCA stents with diffuse 99% in-stent stenosis. The mid to distal RCA has diffuse 50-70% stenosis. FINAL IMPRESSION: 1. CAD as described above including 99% in-stent stenosis of the RCA, circumflex 90%, 90% mid LAD stenosis 2. S/p PCI mid to distal RCA with a 2.25 x 38mm Xience KELVIN, post dilated and balloon angioplasty instent stenosis with a 3.0 NC balloon 3. Normal left sided filling pressures PLAN: 1. Aggressive risk factor modification per most recent ACC/AHA guidelines. 2. Continue aspirin and Plavix for 12 months. 3. Staged PCI LAD and possibly circumflex
[2023-04-09] MEDS: SODIUM CHLORIDE 0.9% 1,000 ML IV SCH (15:24)
[2023-04-09] MEDS ORDERED: LOSARTAN 50 MG TAB PO SCH (21:00)
[2023-04-09] MEDS: EZETIMIBE 10 MG TAB PO SCH (21:22)
[2023-04-09] MEDS: LATANOPROST 0.005% OPHTH DROPS 2.5 ML BTL RIGHT EYE SCH (22:32)
[2023-04-10] MEDS: HEPARIN SOD,PORK IN 0.45% NACL 25,000 UNIT in 0.45% NACL 1 250ML.BAG IV SCH (05:29)
[2023-04-10] MEDS: SODIUM CHLORIDE 0.9% 1,000 ML IV SCH (05:36)
[2023-04-10] MEDS ORDERED: HEPARIN SODIUM,PORCINE 2,500 UNIT in SODIUM CHLORIDE 0.9% 250 ML IRRIGATION PRN (07:00)
[2023-04-10] MEDS ORDERED: HEPARIN SODIUM,PORCINE 10,000 UNIT in SODIUM CHLORIDE 0.9% 1,000 ML IRRIGATION PRN (07:00)
[2023-04-10] MEDS ORDERED: ACETAMINOPHEN TAB 325 MG TAB PO PRN (08:04)
[2023-04-10 08:25] LABS: Basophils % (A) 0 %; Eosinophils # (A) 0.1 k/uL (0-0.7); Eosinophils % (A) 1 %; HCT 44.4 % (34.0-46.0); HGB 14.6 gm/dL (11.4-16.0); Lymphocytes # (A) 1.9 k/uL (1.0-4.8); Lymphocytes % (A) 29 %; MCHC 32.8 g/dL (31.0-37.0); MCV 94.6 fL (80.0-100.0); Mean Platelet Volume 8.1; Monocytes # (A) 0.5 k/uL (0-1.0); Monocytes % (A) 7 %; Neutrophils # (A) 4.1 k/uL (1.3-7.7); Neutrophils % (A) 61 %; Platelet Count 307 k/uL (150-450); RBC 4.69 m/uL (3.80-5.40); RDW 12.6 % (11.5-15.5); WBC 6.7 k/uL (3.8-10.6)
[2023-04-10 08:40] LABS: African American GFR (CKD) 58 (>60 ml/min/1.73 sqM); Anion Gap 10 mmol/L; Blood Urea Nitrogen 17 mg/dL (7-17); Calcium 9.4 mg/dL (8.4-10.2); Carbon Dioxide 22 mmol/L (22-30); Chloride 101 mmol/L (98-107); Glucose 99 mg/dL (74-99); Non-African American GFR(CKD) 51 (>60 ml/min/1.73 sqM); Potassium 4.2 mmol/L (3.5-5.1); Sodium 133 mmol/L (137-145)
[2023-04-10] MEDS: CLOPIDOGREL 75 MG TAB PO SCH (09:25)
[2023-04-10] MEDS: METOPROLOL TARTRATE 25 MG TAB PO SCH ×2 (09:25→20:40)
[2023-04-10] MEDS: ASPIRIN 81 MG PO SCH (09:26)
[2023-04-10] MEDS: LOSARTAN 50 MG TAB PO SCH ×2 (09:26→09:28)
[2023-04-10] MEDS: BRIMONIDINE TARTRATE 0.2% DROPS 5 ML BTL RIGHT EYE SCH ×2 (09:27→20:41)
[2023-04-10] MEDS: DORZOLAMIDE HCL 2% DROPS 10 ML BTL RIGHT EYE SCH ×2 (09:27→20:41)
[2023-04-10] MEDS: APIXABAN 5 MG TAB PO SCH ×2 (12:17→20:40)
--- NOTE | 2023-04-10 14:18 | P.PN ---
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 She was previously following with the theatrical scenic designer in [place] and has not appointment to be stat established with Dr. Infante in May. Patient has past medical history of myocardial infarction and 4 stents placed in 2008 in [place], reported carotid stenosis, atrial fibrillation following [place] not currently on any medications for this, hypertension. Patient states that she has had increasing dyspnea on exertion worsening over the past year. She was able to walk 8-10 blocks and now can only make it to the mailbox. Yesterday, she was walking out of [facility] and developed significant jaw pain and felt like her teeth were going to fall out continue patient on aspirin 81 mg daily, Lopressor 25 mg twice daily. She denies any chest pain. She had significant shortness of breath with the jaw pain. No lightheadedness or dizziness, no nausea. She denies feeling any palpitations or racing heart. She denies history of smoking no alcohol abuse. There is a strong family history of coronary artery disease. Patient presented with A. fib with RVR and converted while in the emergency center not requiring Cardizem drip. Patient is seen today in the emergency center waiting for a bed on the cardiac stepdown unit. EKG initial A. fib with RVR 133 bpm, repeat sinus rhythm with nonspecific ST changes Chest x-ray: No acute process CBC within normal limits. Sodium 133, potassium 5.2, chloride 98, CO2 25, BUN 20 creatinine 0.92. Troponin 0.77, 6.52, I'm 0.46, 11.6. ProBNP 1400. Triglycerides 102, cholesterol 220, LDL 142, HDL 57 Echocardiogram 04/09/2023: EF 50-55%, [id number] mitral regurgitation. Home cardiac medications: Zetia 10 mg at bedtime, Benicar 40 mg at bedtime 04/10 Patient is seen today on the cardiac step unit. She denies having any jaw pain. She does complain of a backache. Yesterday she underwent cardiac catheterization and stenting to the mid to distal RCA with planned staged PCI of the LAD and possibly circumflex. Patient is complaining of pain in the right wrist area following the procedure. She is on a heparin drip which will be discontinued. Potassium is 4.2, BUN 17 creatinine 1.04. Repeat blood work ordered for tomorrow. Regarding statin. Patient has been unable to tolerate in the past and she has also tried Repatha and was unable to tolerate. Heart rate has been in the 60s and 70s, blood pressure 151/68, telemetry sinus rhythm. Physical examination: Gen: This is an 82 year old female. She is resting in bed and appears to be comfortable and in no acute distress VS: reviewed HEENT: Head is atraumatic, normocephalic. Pupils equal, round. Sclerae is anicteric. NECK: Supple. No JVD. LUNGS: Clear to auscultation. No wheezes or rhonchi. No intercostal retractions. HEART: Regular rate and rhythm. Systolic urmur. ABDOMEN: Soft No tenderness. EXTREMITIES: No pedal edema. No calf tenderness. NEUROLOGICAL: Patient is awake, alert and oriented x3. Assessment: A. fib with RVR, paroxysmal atrial fibrillation Non-ST elevated myocardial infarction status post stent to the mid to distal RCA, staged PCI of the LAD and possibly circumflex Hypertension Hyperlipidemia unable to tolerate statin History of coronary artery disease and stent placement 4 Plan: Continue patient on aspirin 81 mg daily, Zetia 10 mg daily, patient unable to tolerate statin Continue losartan 100 mg daily, Lopressor 25 mg twice daily, Plavix 75 mg daily Discontinue heparin drip and start patient on eliquis 5 mg twice daily. Monitor patient overnight and most likely discharge home tomorrow Nurse practitioner note has been reviewed, I agree with documented findings and plan of care. Patient was seen and examined. Objective - Vital Signs Vital signs: Vital Signs Temp 97.8 F 04/10/23 08:00 Pulse 67 04/10/23 08:00 Resp 16 04/10/23 08:00 BP 137/71 04/10/23 08:00 Pulse Ox 97 04/10/23 08:00 FiO2 Intake & Output 04/09/23 04/10/23 04/10/23 18:59 06:59 18:59 Intake Total 350 432.639 118 Output Total 1 Balance 350 431.639 118 Intake: IV 350 Intake, IV Titration 0 182.639 Amount Heparin Sod,Pork in 0.45% 0 182.639 NaCl 25,000 unit In 0.45 % NaCl 1 250ml.bag @ 12 UNITS/KG/HR 9.144 mls/hr IV .Q24H [facility] Rx#: [id number] Oral 250 118 Output: Urine 1 Other: Voiding Method Toilet # Voids 1 - Labs CBC & Chem 7: 04/10/23 07:24 04/10/23 07:24 Labs: Abnormal Lab Results - Last 24 Hours (Table) 04/09/23 04/10/23 Range/Units 05:09 07:24 Sodium 133 L (137-145) mmol/L Cholesterol 220.00 H (0.00-200.00) mg/dL LDL Cholesterol, Calc 142.2 H (0.0-131.0) mg/dL
[2023-04-10 14:55] VITALS: BMI 26.3
--- NOTE | 2023-04-10 15:27 | P.PN ---
Subjective Progress Note Date: 04/10/23 The patient is an 82-year-old female with a PMH of CAD status post 4 stents, hypertension, and dyslipidemia who presents to the emergency room with complaints of chest pain, shortness of breath, and jaw pain. EKG in the emergency room and initially revealed A. fib with RVR at 133 bpm with a left bundle branch block. Subsequent EKG revealed sinus rhythm with sinus arrhythmia at 66 bpm. CXR was unremarkable. Laboratory evaluation revealed a troponin of 0.727, proBNP 1400, Humulin 16.1, sodium 133, potassium 5.2, BUN 20, glucose 122. Her troponins trended up to high of 11.6. Cardiology was consult ed and she underwent cardiac cath. Cardiac cath showed 99% in-stent stenosis of the RCA, circumflex 90%, 90% mid LAD stenosis status post PCI mid to distal RCA. Patient was seen and examined. No acute events overnight. Patient reports no chest pain, SOB, palpitations or lightheadedness. General: non toxic, no distress, appears at stated age Derm: warm, dry Head: atraumatic, normocephalic, symmetric Eyes: EOMI, no lid lag, anicteric sclera Cardiovascular: S1S2 reg, no murmur Lungs: CTA bilateral, no rhonchi, no rales , no accessory muscle use Ext: no gross muscle atrophy, no edema, no contractures Neuro: no focal neuro def as much attentionicits Psych: Alert, oriented, appropriate affect NSTEMI Atrial fibrillation Chronic conditions: HTN, HLD Continue aspirin 81 mg by mouth daily, Plavix 75 mg by mouth daily. Heparin drip discontinued by cardiology. Eliquis 5 mg by mouth twice a day for coagulation. Metoprolol 25 mg by mouth twice a day for rate control. Continue telemetry monitoring. Cardiology note reviewed, monitor patient overnight most likely discharge home tomorrow. Objective - Vital Signs Vital signs: Vital Signs Temp 97.7 F 04/10/23 13:04 Pulse 60 04/10/23 14:29 Resp 16 04/10/23 13:04 BP 151/68 04/10/23 13:04 Pulse Ox 98 04/10/23 13:04 FiO2 Intake & Output 04/09/23 04/10/23 04/10/23 18:59 06:59 18:59 Intake Total 350 432.639 118 Output Total 1 Balance 350 431.639 118 Weight 76.204 kg Intake: IV 350 Intake, IV Titration 0 182.639 Amount Heparin Sod,Pork in 0.45% 0 182.639 NaCl 25,000 unit In 0.45 % NaCl 1 250ml.bag @ 12 UNITS/KG/HR 9.144 mls/hr IV .Q24H [facility] Rx#: [id number] Oral 250 118 Output: Urine 1 Other: Voiding Method Toilet Toilet # Voids 1 - Labs CBC & Chem 7: 04/10/23 07:24 04/10/23 07:24 Labs: Abnormal Lab Results - Last 24 Hours (Table) 04/10/23 04/10/23 Range/Units 07:24 11:18 APTT 43.4 H (22.0-30.0) sec Sodium 133 L (137-145) mmol/L
[2023-04-10] MEDS: EZETIMIBE 10 MG TAB PO SCH (20:40)
[2023-04-10] MEDS: LATANOPROST 0.005% OPHTH DROPS 2.5 ML BTL RIGHT EYE SCH (20:41)
[2023-04-11] MEDS: CLOPIDOGREL 75 MG TAB PO SCH (07:46)
[2023-04-11] MEDS: ASPIRIN 81 MG PO SCH (07:46)
[2023-04-11] MEDS: APIXABAN 5 MG TAB PO SCH (07:46)
[2023-04-11] MEDS: METOPROLOL TARTRATE 25 MG TAB PO SCH (07:46)
[2023-04-11] MEDS: LOSARTAN 50 MG TAB PO SCH (07:46)
[2023-04-11] MEDS: DORZOLAMIDE HCL 2% DROPS 10 ML BTL RIGHT EYE SCH (07:48)
[2023-04-11] MEDS: BRIMONIDINE TARTRATE 0.2% DROPS 5 ML BTL RIGHT EYE SCH (07:48)
[2023-04-11 08:56] VITALS: BP 172/76; PULSE 63; RESP 16; TEMP 98
--- NOTE | 2023-04-11 09:11 | P.PN ---
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 She was previously following with the swimming pool plasterer helper in [place] and has not appointment to be stat established with Dr. Infante in May. Patient has past medical history of myocardial infarction and 4 stents placed in 2008 in [place], reported carotid stenosis, atrial fibrillation following [place] not currently on any medications for this, hypertension. Patient states that she has had increasing dyspnea on exertion worsening over the past year. She was able to walk 8-10 blocks and now can only make it to the mailbox. Yesterday, she was walking out of [facility] and developed significant jaw pain and felt like her teeth were going to fall out continue patient on aspirin 81 mg daily, Lopressor 25 mg twice daily. She denies any chest pain. She had significant shortness of breath with the jaw pain. No lightheadedness or dizziness, no nausea. She denies feeling any palpitations or racing heart. She denies history of smoking no alcohol abuse. There is a strong family history of coronary artery disease. Patient presented with A. fib with RVR and converted while in the emergency center not requiring Cardizem drip. Patient is seen today in the emergency center waiting for a bed on the cardiac stepdown unit. EKG initial A. fib with RVR 133 bpm, repeat sinus rhythm with nonspecific ST changes Chest x-ray: No acute process CBC within normal limits. Sodium 133, potassium 5.2, chloride 98, CO2 25, BUN 20 creatinine 0.92. Troponin 0.77, 6.52, I'm 0.46, 11.6. ProBNP 1400. Triglycerides 102, cholesterol 220, LDL 142, HDL 57 Echocardiogram 04/09/2023: EF 50-55%, [id number] mitral regurgitation. Home cardiac medications: Zetia 10 mg at bedtime, Benicar 40 mg at bedtime 04/10 Patient is seen today on the cardiac step unit. She denies having any jaw pain. She does complain of a backache. Yesterday she underwent cardiac catheterization and stenting to the mid to distal RCA with planned staged PCI of the LAD and possibly circumflex. Patient is complaining of pain in the right wrist area following the procedure. She is on a heparin drip which will be discontinued. Potassium is 4.2, BUN 17 creatinine 1.04. Repeat blood work ordered for tomorrow. Regarding statin. Patient has been unable to tolerate in the past and she has also tried Repatha and was unable to tolerate. Heart rate has been in the 60s and 70s, blood pressure 151/68, telemetry sinus rhythm. 04/11 Patient is seen today in follow-up. She states she is feeling well is ambulating without lightheadedness or dizziness, no chest pain or shortness of breath. She is anxious to go home today. She has been started on eliquis yesterday and was maintained on Plavix and aspirin as well. She is unable to tolerate statin. Heart rates in the 60s, blood pressure 172/76, pulse ox 90% on room air. Physical examination: Gen: This is an 82 year old female. She is resting in bed and appears to be comfortable and in no acute distress VS: reviewed HEENT: Head is atraumatic, normocephalic. Pupils equal, round. Sclerae is anicteric. NECK: Supple. No JVD. LUNGS: Clear to auscultation. No wheezes or rhonchi. No intercostal retractions. HEART: Regular rate and rhythm. Systolic urmur. ABDOMEN: Soft No tenderness. EXTREMITIES: No pedal edema. No calf tenderness. NEUROLOGICAL: Patient is awake, alert and oriented x3. Assessment: A. fib with RVR, paroxysmal atrial fibrillation Non-ST elevated myocardial infarction status post stent to the mid to distal RCA, staged PCI of the LAD and possibly circumflex Hypertension Hyperlipidemia unable to tolerate statin History of coronary artery disease and stent placement 4 Plan: Continue patient on aspirin 81 mg daily, Zetia 10 mg daily, patient unable to tolerate statin Continue losartan 100 mg daily, Lopressor 25 mg twice daily, Plavix 75 mg daily, eliquis 5 mg twice daily Discontinue aspirin at the time of discharge. Prescriptions for her new medications have been sent to her pharmacy Patient may follow-up in the office in one week. Nurse practitioner note has been reviewed, I agree with documented findings and plan of care. Patient was seen and examined. Objective - Vital Signs Vital signs: Vital Signs Temp 98.3 F 04/11/23 03:38 Pulse 69 04/11/23 03:38 Resp 14 04/11/23 03:38 BP 169/92 04/11/23 03:38 Pulse Ox 98 04/11/23 03:38 FiO2 Intake & Output 04/10/23 04/11/23 04/11/23 18:59 06:59 18:59 Intake Total 1198 Balance 1198 Weight 76.204 kg Intake: Oral 1198 Other: Voiding Method Toilet Toilet # Voids 2 - Labs CBC & Chem 7: 04/10/23 07:24 04/10/23 07:24 Labs: Abnormal Lab Results - Last 24 Hours (Table) 04/10/23 04/10/23 Range/Units 07:24 11:18 APTT 43.4 H (22.0-30.0) sec Sodium 133 L (137-145) mmol/L
[2023-04-11 09:27] LABS: African American GFR (CKD) 62 (>60 ml/min/1.73 sqM); Anion Gap 9 mmol/L; Blood Urea Nitrogen 16 mg/dL (7-17); Calcium 9.2 mg/dL (8.4-10.2); Carbon Dioxide 24 mmol/L (22-30); Chloride 102 mmol/L (98-107); Glucose 107 mg/dL (74-99); Non-African American GFR(CKD) 53 (>60 ml/min/1.73 sqM); Potassium 4.1 mmol/L (3.5-5.1); Sodium 135 mmol/L (137-145)
--- NOTE | 2023-04-11 11:51 | P.DS ---
Providers Date of admission: 04/08/23 23:16 Expected date of discharge: 04/11/23 Attending physician: Heather Helton MD Consults: 04/08/23 23:13 Consult Physician Urgent Consulting Provider: Richard Infante Consult Reason/Comments: Hypertensive crisis, non-ST elevation myocardial infarction, atrial fibrill Do you want consulting provider notified?: Yes 04/09/23 12:20 Consult Physician Routine Consulting Provider: [facility] Consult Reason/Comments: Post Interventional Patient Do you want consulting provider notified?: Already Contacted Primary care physician: [facility] Course: The patient is an 82-year-old female with a PMH of CAD status post 4 stents, hypertension, and dyslipidemia who presents to the emergency room with complaints of chest pain, shortness of breath, and jaw pain. EKG in the emergency room and initially revealed A. fib with RVR at 133 bpm with a left bundle branch block. Subsequent EKG revealed sinus rhythm with sinus arrhythmia at 66 bpm. CXR was unremarkable. Laboratory evaluation revealed a troponin of 0.727, proBNP 1400, Hg 16.1, sodium 133, potassium 5.2, BUN 20, glucose 122. Her troponins trended up to high of 11.6. Cardiology was consulted and she underwent cardiac cath. Cardiac cath showed 99% in-stent stenosis of the RCA, circumflex 90%, 90% mid LAD stenosis status post PCI mid to distal RCA. Patient remained chest pain free after her PCI. Cardiology started the patient on Metoprolol, Losartan, Plavix and Eliquis. Plan is for her to follow up with Cardiology in the outpatient setting for a staged PCI. Patient seen and examined. No acute events overnight. Patient denies any chest pain, shortness breath or palpitations. No nausea or vomiting. No fever or chills. She is advised follow-up with her novelty twister operator within 1 week of discharge. She is advised follow-up with her PCP within 1-2 days of discharge. All medications have been sent to her pharmacy by cardiology. Pertinent procedures include cardiac catheterization and PCI. Pertinent studies include echocardiogram, chest x-ray. General: non toxic, no distress, appears at stated age Derm: warm, dry Head: atraumatic, normocephalic, symmetric Eyes: EOMI, no lid lag, anicteric sclera Cardiovascular: S1S2 reg, no murmur Lungs: CTA bilateral, no rhonchi, no rales , no accessory muscle use Ext: no gross muscle atrophy, no edema, no contractures Neuro: no focal neuro def as much attentionicits Psych: Alert, oriented, appropriate affect Discharge Diagnosis: NSTEMI Atrial fibrillation Chronic conditions: HTN, HLD This complex discharge took 35 minutes to complete. Patient Condition at Discharge: Stable Plan - Discharge Summary New Discharge Prescriptions: New Apixaban [Eliquis] 5 mg PO BID #180 tab Nitroglycerin Sl Tabs [Nitrostat] 0.4 mg SUBLINGUAL Q5M PRN #25 tab PRN Reason: Chest Pain Clopidogrel [Plavix] 75 mg PO DAILY #90 tab Metoprolol Tartrate [Lopressor] 25 mg PO BID #90 tab Losartan Potassium [Cozaar] 100 mg PO DAILY #90 tab Continue Latanoprost [Latanoprost 0.005%] 1 drop RIGHT EYE HS Ezetimibe [Zetia] 10 mg PO HS Brinzolamide/Brimonidine Tart [Simbrinza 1%-0.2% Eye Drops] 1 drop RIGHT EYE BID Discontinued Olmesartan Medoxomil [Benicar] 40 mg PO HS Discharge Medication List Brinzolamide/Brimonidine Tart [Simbrinza 1%-0.2% Eye Drops] 1 drop RIGHT EYE BID 04/08/23 [History] Ezetimibe [Zetia] 10 mg PO HS 04/08/23 [History] Latanoprost [Latanoprost 0.005%] 1 drop RIGHT EYE HS 04/08/23 [History] Apixaban [Eliquis] 5 mg PO BID #180 tab 04/10/23 [Rx] Clopidogrel [Plavix] 75 mg PO DAILY #90 tab 04/11/23 [Rx] Losartan Potassium [Cozaar] 100 mg PO DAILY #90 tab 04/11/23 [Rx] Metoprolol Tartrate [Lopressor] 25 mg PO BID #90 tab 04/11/23 [Rx] Nitroglycerin Sl Tabs [Nitrostat] 0.4 mg SUBLINGUAL Q5M PRN #25 tab 04/11/23 [Rx] Follow up Appointment(s)/Referral(s): Radames Henning DO [STAFF PHYSICIAN] - 1 Week (office will call with appointment date and time) Morena Blue [Primary Care Provider] - 04/14/23 10:45 am Patient Instructions/Handouts: A-fib (Atrial Fibrillation) (DC), Heart Catheterization (DC) Activity/Diet/Wound Care/Special Instructions: Come back to the hospital for chest pain, shortness of breath, palpitations or lightheadedness. Follow up with Cardiology within 1 week of discharge. Follow up with your PCP within 1-2 days of discharge. Take all medications as advised. Discharge Disposition: HOME SELF-CARE
== END 2023-04-11 12:11 | disposition home or self-care (01) | DRG 246 ==
LOC: EC 20:12 → 3SCARD 23:16
PROVIDERS: ADMIT Internal Medicine; ATTEND Internal Medicine
PROC: B241ZZ3 Ultrasonography of Multiple Coronary Arteries, Intravascular (ICD-10-PCS; 2023-04-09)
PROC: 027034Z Dilation of Coronary Artery, One Artery with Drug-eluting Intraluminal Device, Percutaneous Approach (ICD-10-PCS; principal; 2023-04-09 10:11)
PROC: 4A023N7 Measurement of Cardiac Sampling and Pressure, Left Heart, Percutaneous Approach (ICD-10-PCS; 2023-04-09 10:11)
PROC: B2111ZZ Fluoroscopy of Multiple Coronary Arteries using Low Osmolar Contrast (ICD-10-PCS; 2023-04-09 10:11)
DX: T82.855A Stenosis of coronary artery stent, initial encounter (principal); I21.4 Non-ST elevation (NSTEMI) myocardial infarction; I16.9 Hypertensive crisis, unspecified; I48.0 Paroxysmal atrial fibrillation; I34.0 Nonrheumatic mitral (valve) insufficiency; I65.29 Occlusion and stenosis of unspecified carotid artery; I10 Essential (primary) hypertension; I25.10 Atherosclerotic heart disease of native coronary artery without angina pectoris; E78.5 Hyperlipidemia, unspecified; I44.7 Left bundle-branch block, unspecified; I49.8 Other specified cardiac arrhythmias; M25.531 Pain in right wrist; M54.9 Dorsalgia, unspecified; Y71.1 Therapeutic (nonsurgical) and rehabilitative cardiovascular devices associated with adverse incidents; Z79.899 Other long term (current) drug therapy; I25.2 Old myocardial infarction; Z82.49 Family history of ischemic heart disease and other diseases of the circulatory system
CPT/HCPCS: 36415; 71046; 80048; 80053; 80061; 83735; 83880; 84484; 85025; 85610; 85730; 92978; 93005; 93306; 93458; 96365; 96366; 96375; 99285

== ENCOUNTER 2023-04-12 12:32 | Emergency (ER) | payer MEDICARE ==
[2023-04-12 12:39] VITALS: TEMP 97.3
--- NOTE | 2023-04-12 13:20 | ED ---
General Adult HPI - General Chief complaint: Dizziness Stated complaint: Dizziness Time Seen by Provider: 04/12/23 12:46 Source: patient, family, RN notes reviewed Mode of arrival: wheelchair Limitations: no limitations - History of Present Illness Initial comments: Patient is a pleasant 82-year-old female presenting to the emergency department with concerns with lightheadedness. Onset of symptoms was this morning after taking her medications. Patient did have medication adjustments in the hospital. Patient did have recent cardiac stenting. Patient was told she may need more cardiac stenting in the future. Patient did have chest symptoms about her and on previous visit however none since that time. Patient denies chest pain. No dyspnea. No palpitations. No weakness. No confusion. No headache. - Related Data Home Medications Medication Instructions Recorded Confirmed Brinzolamide/Brimonidine Tart 1 drop RIGHT EYE BID 04/08/23 04/08/23 [Simbrinza 1%-0.2% Eye Drops] Ezetimibe [Zetia] 10 mg PO HS 04/08/23 04/08/23 Latanoprost [Latanoprost 0.005%] 1 drop RIGHT EYE HS 04/08/23 04/08/23 Previous Rx's Medication Instructions Recorded Apixaban [Eliquis] 5 mg PO BID #180 tab 04/10/23 Clopidogrel [Plavix] 75 mg PO DAILY #90 tab 04/11/23 Losartan Potassium [Cozaar] 100 mg PO DAILY #90 tab 04/11/23 Metoprolol Tartrate [Lopressor] 25 mg PO BID #90 tab 04/11/23 Nitroglycerin Sl Tabs [Nitrostat] 0.4 mg SUBLINGUAL Q5M PRN #25 tab 04/11/23 Allergies Allergy/AdvReac Type Severity Reaction Status Date / Time nickel Allergy Rash/Hives Verified 04/12/23 12:39 [id number] Reductase AdvReac Muscle/Joint Verified 04/12/23 12:39 Inhibitor pain all over Review of Systems ROS Statement: Those systems with pertinent positive or pertinent negative responses have been documented in the HPI. ROS Other: All systems not noted in ROS Statement are negative. Constitutional: Denies: fever Eyes: Denies: eye pain ENT: Denies: ear pain Respiratory: Denies: cough Cardiovascular: Denies: chest pain Endocrine: Denies: fatigue Gastrointestinal: Denies: abdominal pain Neurological: Reports: as per HPI. Denies: headache, weakness, confusion Past Medical History Past Medical History: Coronary Artery Disease (CAD), Hyperlipidemia, Hypertension Additional Past Medical History / Comment(s): scoliosis History of Any Multi-Drug Resistant Organisms: None Reported Past Surgical History: Heart Catheterization With Stent Date of Last Stent Placement:: 04/09/2023 Past Psychological History: No Psychological Hx Reported Smoking Status: Never smoker Past Alcohol Use History: None Reported Past Drug Use History: None Reported - Past Family History Brother(s) Family Medical History: Congestive Heart Failure (CHF), Coronary Artery Disease (CAD) General Exam Limitations: no limitations General appearance: alert, in no apparent distress Head exam: Present: normocephalic Eye exam: Present: normal appearance, PERRL, EOMI ENT exam: Present: normal oropharynx Neck exam: Present: normal inspection Respiratory exam: Present: normal lung sounds bilaterally Cardiovascular Exam: Present: regular rate, normal rhythm GI/Abdominal exam: Present: soft. Absent: tenderness Extremities exam: Present: normal inspection Neurological exam: Present: alert, oriented X3, CN II-XII intact. Absent: motor sensory deficit Expanded Speech: Present: fluid speech Cranial nerves: EOM's Intact: Normal Sensory exam: Upper Extremity Light Touch: Normal, Lower Extremity Light Touch: Normal Motor strength exam: RUE: 5, LUE: 5, RLE: 5, LLE: 5 Eye Response: (4) open spontaneously Motor Response: (6) obeys commands Verbal Response: (5) oriented Psychiatric exam: Present: normal affect, normal mood Skin exam: Present: normal color Course Vital Signs 04/12/23 04/12/23 04/12/23 12:36 13:30 15:30 Temperature 97.3 F L Pulse Rate 58 L 57 L Respiratory 16 18 Rate Blood Pressure 156/71 162/77 Blood Pressure 187/85 [Left Arm Sitting] Blood Pressure 146/94 [Left Arm Standing] Blood Pressure 163/75 [Left Arm Supine] O2 Sat by Pulse 98 98 Oximetry EKG Findings - EKG Results: EKG: interpreted by ERMD (Premature complexes present. Lateral ST depression. Previous EKGs reviewed.), sinus rhythm, normal axis, normal QRS Medical Decision Making - Medical Decision Making Was pt. sent in by a medical professional or institution (Dr., PA, JIRA ADMINISTRATOR, urgent care, hospital, or longterm...) When possible be specific @ -No Did you speak to anyone other than the patient for history (EMS, parent, family, police, friend...)? What history was obtained from this source @ -No Did you review nursing and triage notes (agree or disagree)? Why? @ -I reviewed and agree with nursing and triage notes Were old charts reviewed (outside hosp., previous admission, EMS record, old EKG, old radiological studies, urgent care reports/EKG's, longterm records)? Report findings @ -Previous admission reviewed Differential Diagnosis (chest pain, altered mental status, abdominal pain women, abdominal pain men, vaginal bleeding, weakness, fever, dyspnea, syncope, he adache, dizziness, GI bleed, back pain, seizure, CVA, palpatations, mental health)? @ -Differential Dizziness: Benign paroxysmal positional Vertigo, Menieres disease, otitis media, acoustic neuroma, vertebrobasilar insufficiency, cerebellar stroke, encephalitis, hypovolemic, arrhythmia, coronary artery syndrome, anemia, this is not meant to be an all-inclusive list EKG interpreted by me (3pts min.). @ -As above X-rays interpreted by me (1pt min.). @ -Chest x-ray does not reveal acute abnormality CT interpreted by me (1pt min.). @ -None done U/S interpreted by me (1pt. min.). @ -None done What testing was considered but not performed or refused? (CT, X-rays, U/S, labs)? Why? @ -None What meds were considered but not given or refused? Why? @ -None Did you discuss the management of the patient with other professionals (prof arreola i.e. , PA, JIRA ADMINISTRATOR, lab, RT, psych nurse, nephrology social worker, ccie, teacher, community cultural development officer, outsole caser)? Give summary @ -Case was discussed with [facility] [place] physician Dr. Willoughby who states patient can be discharged if she is feeling fine. Otherwise patient has further concerns she can be admitted. Was smoking cessation discussed for >3mins.? @ -No Was critical care preformed (if so, how long)? @ -No Were there social determinants of health that impacted care today? How? (Homelessness, low income, unemployed, alcoholism, drug addiction, transportation, low edu. Level, literacy, decrease access to med. care, long-term, rehab)? @ -No Was there de-escalation of care discussed even if they declined (Discuss DNR or withdrawal of care, Hospice)? DNR status @ -No What co-morbidities impacted this encounter? (DM, HTN, Smoking, COPD, CAD, Cancer, CVA, ARF, Chemo, Hep., AIDS, mental health diagnosis, sleep apnea, morbid obesity)? @ -None Was patient admitted / discharged? Hospital course, mention meds given and route, prescriptions, significant lab abnormalities, going to OR and other pertinent info. @ -Patient reevaluated. Patient updated on results including mild orthostasis and troponin change. Troponin is significantly improved from previous troponin. Patient states she is symptom-free and requesting discharge home. Patient does have follow-up scheduled already and agreeable to keep her appointments. Undiagnosed new problem with uncertain prognosis? @ -No Drug Therapy requiring intensive monitoring for toxicity (Heparin, Nitro, Insulin, Cardizem)? @ -No Were any procedures done? @ -No Diagnosis/symptom? @ -Lightheadedness Acute, or Chronic, or Acute on Chronic? @ -Acute Uncomplicated (without systemic symptoms) or Complicated (systemic symptoms)? @ -default Side effects of treatment? @ -No Exacerbation, Progression, or Severe Exacerbation? @ -No Poses a threat to life or bodily function? How? (Chest pain, USA, NC, pneumonia, PE, COPD, DKA, ARF, appy, cholecystitis, CVA, Diverticulitis, Homicidal, Suici jamari, threat to staff... and all critical care pts) @ -No - Lab Data Result diagrams: 04/12/23 13:27 04/12/23 13:27 Lab Results 04/12/23 04/12/23 04/12/23 Range/Units 13:27 13:27 13:27 WBC 6.7 (3.8-10.6) k/uL RBC 4.49 (3.80-5.40) m/uL Hgb 13.8 (11.4-16.0) gm/dL Hct 41.7 (34.0-46.0) % MCV 92.8 (80.0-100.0) fL MCH 30.7 (25.0-35.0) pg MCHC 33.1 (31.0-37.0) g/dL RDW 12.6 (11.5-15.5) % Plt Count 260 (150-450) k/uL MPV 8.2 Neutrophils % 66 % Lymphocytes % 22 % Monocytes % 8 % Eosinophils % 1 % Basophils % 0 % Neutrophils # 4.4 (1.3-7.7) k/uL Lymphocytes # 1.5 (1.0-4.8) k/uL Monocytes # 0.5 (0-1.0) k/uL Eosinophils # 0.1 (0-0.7) k/uL Basophils # 0.0 (0-0.2) k/uL Sodium 130 L (137-145) mmol/L Potassium 4.6 (3.5-5.1) mmol/L Chloride 97 L (98-107) mmol/L Carbon Dioxide 23 (22-30) mmol/L Anion Gap 10 mmol/L BUN 21 H (7-17) mg/dL Creatinine 1.02 (0.52-1.04) mg/dL Est GFR (CKD-EPI)AfAm 60 (>60 ml/min/1.73 sqM) Est GFR (CKD-EPI)NonAf 52 (>60 ml/min/1.73 sqM) Glucose 111 H (74-99) mg/dL Calcium 9.4 (8.4-10.2) mg/dL Total Bilirubin 1.1 (0.2-1.3) mg/dL AST 65 H (14-36) U/L ALT 30 (4-34) U/L Alkaline Phosphatase 36 L (38-126) U/L Troponin I (0.000-0.034) ng/mL Total Protein 7.3 (6.3-8.2) g/dL Albumin 4.3 (3.5-5.0) g/dL Urine Color Light Yellow Urine Appearance Clear (Clear) Urine pH 6.5 (5.0-8.0) Ur Specific Comfrey 1.007 (1.001-1.035) Urine Protein Negative (Negative) Urine Glucose (UA) Negative (Negative) Urine Ketones Negative (Negative) Urine Blood Negative (Negative) Urine Nitrite Negative (Negative) Urine Bilirubin Negative (Negative) Urine Urobilinogen <2.0 (<2.0) mg/dL Ur Leukocyte Esterase Moderate H (Negative) Urine RBC 1 (0-5) /hpf Urine WBC 7 H (0-5) /hpf Ur Squamous Epith Cells <1 (0-4) /hpf Urine Bacteria Few H (None) /hpf Urine Mucus Rare H (None) /hpf 04/12/23 Range/Units 13:27 WBC (3.8-10.6) k/uL RBC (3.80-5.40) m/uL Hgb (11.4-16.0) gm/dL Hct (34.0-46.0) % MCV (80.0-100.0) fL MCH (25.0-35.0) pg MCHC (31.0-37.0) g/dL RDW (11.5-15.5) % Plt Count (150-450) k/uL MPV Neutrophils % % Lymphocytes % % Monocytes % % Eosinophils % % Basophils % % Neutrophils # (1.3-7.7) k/uL Lymphocytes # (1.0-4.8) k/uL Monocytes # (0-1.0) k/uL Eosinophils # (0-0.7) k/uL Basophils # (0-0.2) k/uL Sodium (137-145) mmol/L Potassium (3.5-5.1) mmol/L Chloride (98-107) mmol/L Carbon Dioxide (22-30) mmol/L Anion Gap mmol/L BUN (7-17) mg/dL Creatinine (0.52-1.04) mg/dL Est GFR (CKD-EPI)AfAm (>60 ml/min/1.73 sqM) Est GFR (CKD-EPI)NonAf (>60 ml/min/1.73 sqM) Glucose (74-99) mg/dL Calcium (8.4-10.2) mg/dL Total Bilirubin (0.2-1.3) mg/dL AST (14-36) U/L ALT (4-34) U/L Alkaline Phosphatase (38-126) U/L Troponin I 1.900 H* (0.000-0.034) ng/mL Total Protein (6.3-8.2) g/dL Albumin (3.5-5.0) g/dL Urine Color Urine Appearance (Clear) Urine pH (5.0-8.0) Ur Specific Comfrey (1.001-1.035) Urine Protein (Negative) Urine Glucose (UA) (Negative) Urine Ketones (Negative) Urine Blood (Negative) Urine Nitrite (Negative) Urine Bilirubin (Negative) Urine Urobilinogen (<2.0) mg/dL Ur Leukocyte Esterase (Negative) Urine RBC (0-5) /hpf Urine WBC (0-5) /hpf Ur Squamous Epith Cells (0-4) /hpf Urine Bacteria (None) /hpf Urine Mucus (None) /hpf Disposition Clinical Impression: Lightheadedness Disposition: HOME SELF-CARE Condition: Stable Instructions (If sedation given, give patient instructions): Dizziness (ED) Additional Instructions: Please do follow-up with your primary care physician and shirring machine operator in the beginning of the week. Return for increased lightheadedness, pain or difficulty breathing, weakness, worsening or change in symptoms or other concerns. Is patient prescribed a controlled substance at d/c from ED?: No Referrals: Morena Blue [Primary Care Provider] - 1-2 days Time of Disposition: 16:13
[2023-04-12 13:32] VITALS: PULSE 57; RESP 18
[2023-04-12 13:37] LABS: Basophils % (A) 0 %; Eosinophils # (A) 0.1 k/uL (0-0.7); Eosinophils % (A) 1 %; HCT 41.7 % (34.0-46.0); HGB 13.8 gm/dL (11.4-16.0); Lymphocytes # (A) 1.5 k/uL (1.0-4.8); Lymphocytes % (A) 22 %; MCH 30.7 pg (25.0-35.0); MCHC 33.1 g/dL (31.0-37.0); MCV 92.8 fL (80.0-100.0); Mean Platelet Volume 8.2; Monocytes # (A) 0.5 k/uL (0-1.0); Monocytes % (A) 8 %; Neutrophils # (A) 4.4 k/uL (1.3-7.7); Neutrophils % (A) 66 %; Platelet Count 260 k/uL (150-450); RBC 4.49 m/uL (3.80-5.40); RDW 12.6 % (11.5-15.5); WBC 6.7 k/uL (3.8-10.6)
[2023-04-12 13:59] LABS: ALT 30 U/L (4-34); African American GFR (CKD) 60 (>60 ml/min/1.73 sqM); Albumin 4.3 g/dL (3.5-5.0); Anion Gap 10 mmol/L; Blood Urea Nitrogen 21 mg/dL (7-17); Calcium 9.4 mg/dL (8.4-10.2); Carbon Dioxide 23 mmol/L (22-30); Chloride 97 mmol/L (98-107); Glucose 111 mg/dL (74-99); Non-African American GFR(CKD) 52 (>60 ml/min/1.73 sqM); Sodium 130 mmol/L (137-145); Total Bilirubin 1.1 mg/dL (0.2-1.3); Total Protein 7.3 g/dL (6.3-8.2)
[2023-04-12 14:08] LABS: AST 65 U/L (14-36); Alkaline Phosphatase 36 U/L (38-126); Potassium 4.6 mmol/L (3.5-5.1)
--- NOTE | 2023-04-12 14:52 | XR ---
EXAMINATION TYPE: XR chest 2V DATE OF EXAM: 04/12/2023 COMPARISON: 04/12/2023 HISTORY: 82-year-old female dizziness TECHNIQUE: AP and lateral views FINDINGS: Heart borderline enlarged. Mild atherosclerotic arch calcifications. No consolidation or pleural effu beckie. Mild hyperinflation. IMPRESSION: Borderline cardiomegaly. Possible underlying COPD. Otherwise, no acute process seen.
[2023-04-12 15:52] VITALS: BP 163/75
[2023-04-12 16:01] LABS: Appearance,Urine Clear (Clear); Bacteria,Urine Few /hpf; Bilirubin,Urine Negative (Negative); Blood,Urine Negative (Negative); Color,Urine Light Yellow; Glucose,Urine (UA) Negative (Negative); Ketones,Urine Negative (Negative); Leukocyte Esterase,Urine Moderate (Negative); Mucus,Urine Rare /hpf; Nitrite,Urine Negative (Negative); PH, Urine 6.5 (5.0-8.0); Protein,Urine Negative (Negative); RBC,Urine 1 /hpf (0-5); Specific Gravity,Urine 1.007 (1.001-1.035); Squamous Epithelial Cell,Urine <1 /hpf (0-4); Urobilinogen,Urine <2.0 mg/dL (<2.0); WBC,Urine 7 /hpf (0-5)
== END 2023-04-12 16:30 | disposition home or self-care (01) ==
LOC: EC 12:32
DX: R42 Dizziness and giddiness (principal); I25.10 Atherosclerotic heart disease of native coronary artery without angina pectoris; I10 Essential (primary) hypertension; Z79.899 Other long term (current) drug therapy; Z88.8 Allergy status to other drugs, medicaments and biological substances; Z79.01 Long term (current) use of anticoagulants
CPT/HCPCS: 36415; 71046; 80053; 81001; 84484; 85025; 93005; 99284

== ENCOUNTER 2023-04-15 23:34 | Observation (INO) | payer MEDICARE, OTHER ==
[2023-04-15] MEDS ORDERED: MORPHINE SULFATE 4 MG/ML SYRINGE IVP STA (23:43)
--- NOTE | 2023-04-15 23:46 | ED ---
General Adult HPI - General Stated complaint: ABD PAIN Time Seen by Provider: 04/15/23 23:38 - History of Present Illness Initial comments: This is a 82-year-old female with a past medical history including hypertension as well as hyperlipidemia with a recent [facility] last week presents emergency department via EMS for right lower quadrant abdominal pain and right hip pain. The patient stated that she was doing well today when she had sudden right sided pain that she described as deep within the right lower abdomen but more focused on the right hip and shooting down her right leg. The patient denied any trauma to the area. The patient stated that she had some associated nausea without vomiting. The patient did call EMS to be taken to the emergency department and during transport was given fentanyl and Zofran with improvement of her pain. The patient stated that she has never had anything similar to this the past. The patient was however resting in bed comfortably without any further distress. - Related Data Home Medications Medication Instructions Recorded Confirmed Brinzolamide/Brimonidine Tart 1 drop RIGHT EYE BID 04/08/23 04/08/23 [Simbrinza 1%-0.2% Eye Drops] Ezetimibe [Zetia] 10 mg PO HS 04/08/23 04/08/23 Latanoprost [Latanoprost 0.005%] 1 drop RIGHT EYE HS 04/08/23 04/08/23 Previous Rx's Medication Instructions Recorded Apixaban [Eliquis] 5 mg PO BID #180 tab 04/10/23 Clopidogrel [Plavix] 75 mg PO DAILY #90 tab 04/11/23 Losartan Potassium [Cozaar] 100 mg PO DAILY #90 tab 04/11/23 Metoprolol Tartrate [Lopressor] 25 mg PO BID #90 tab 04/11/23 Nitroglycerin Sl Tabs [Nitrostat] 0.4 mg SUBLINGUAL Q5M PRN #25 tab 04/11/23 Allergies Allergy/AdvReac Type Severity Reaction Status Date / Time nickel Allergy Rash/Hives Verified 04/12/23 12:39 [id number] Reductase AdvReac Muscle/Joint Verified 04/12/23 12:39 Inhibitor pain all over Review of Systems ROS Statement: Those systems with pertinent positive or pertinent negative responses have been documented in the HPI. ROS Other: All systems not noted in ROS Statement are negative. Past Medical History Past Medical History: Coronary Artery Disease (CAD), Hyperlipidemia, Hypertension Additional Past Medical History / Comment(s): scoliosis History of Any Multi-Drug Resistant Organisms: None Reported Past Surgical History: Heart Catheterization With Stent Date of Last Stent Placement:: 04/09/2023 Past Psychological History: No Psychological Hx Reported Smoking Status: Never smoker Past Alcohol Use History: None Reported Past Drug Use History: None Reported - Past Family History Brother(s) Family Medical History: Congestive Heart Failure (CHF), Coronary Artery Disease (CAD) General Exam Limitations: no limitations General appearance: alert, in no apparent distress Head exam: Present: atraumatic, normocephalic, normal inspection Eye exam: Present: normal appearance, PERRL Pupils: Present: normal accommodation ENT exam: Present: normal exam, normal oropharynx, mucous membranes moist Neck exam: Present: normal inspection, full ROM Respiratory exam: Present: normal lung sounds bilaterally Cardiovascular Exam: Present: regular rate, normal rhythm, normal heart sounds GI/Abdominal exam: Present: soft, tenderness (Mild TTP over the right lateral lower abdomen, without RLQ anterior abdominal pain), normal bowel sounds Extremities exam: Present: normal inspection, full ROM, tenderness (TTP over the rigth proximal femur without deformity ) Back exam: Present: normal inspection, full ROM Neurological exam: Present: alert, oriented X3, CN II-XII intact Psychiatric exam: Present: normal affect, normal mood Skin exam: Present: warm, dry Course Vital Signs 04/16/23 00:45 Pulse Rate 54 L Respiratory 16 Rate Blood Pressure 153/67 O2 Sat by Pulse 96 Oximetry EKG Findings - EKG Comments: EKG Findings:: An EKG was obtained and was interpreted by myself showing a rate of 60, FL interval 155, QRS duration of 88 and QTC of 409. His EKG showed a normal sinus rhythm with no ST segment elevation or depression noted. Medical Decision Making - Medical Decision Making Was pt. sent in by a medical professional or institution (, PA, BILLBOARD POSTER, urgent care, hospital, or assisted...) When possible be specific @ -No Did you speak to anyone other than the patient for history (EMS, parent, family, police, friend...)? What history was obtained from this source @ -No Did you review nursing and triage notes (agree or disagree)? Why? @ -I reviewed and agree with nursing and triage notes Were old charts reviewed (outside hosp., previous admission, EMS record, old EKG, old radiological studies, urgent care reports/EKG's, assisted records)? Report findings @ -No old charts were reviewed Differential Diagnosis (chest pain, altered mental status, abdominal pain women, abdominal pain men, vaginal bleeding, weakness, fever, dyspnea, syncope, headache, dizziness, GI bleed, back pain, seizure, CVA, palpatations, mental health)? @ -Right hip contusion, appendicitis, right pyelonephritis EKG interpreted by me (3pts min.). @ -As above X-rays interpreted by me (1pt min.). @ -X-ray of the right hip was obtained and was interpreted by myself showing no acute process. CT interpreted by me (1pt min.). @ -CT abdomen and pelvis with IV contrast was obtained and was interpreted by myself showing asymmetrical enlargement of the right psoas muscle compared to the left with an approximate 6 mm area of contrast extravasation associated with a roughly 4 cm diameter hematoma consistent with active bleeding within a retroperitoneal hematoma. U/S interpreted by me (1pt. min.). @ -None done What testing was considered but not performed or refused? (CT, X-rays, U/S, labs)? Why? @ -None What meds were considered but not given or refused? Why? @ -None Did you discuss the management of the patient with other professionals (professionals i.e. , PA, BILLBOARD POSTER, lab, RT, psych nurse, rn social services, care assistant, teacher, maritime officer, supportive employment case manager)? Give summary @ -Yes, admitting physician, Dr. Isaac was contacted regarding a patient admission and he did accept the patient for admission with interventional radiology on consult. Was smoking cessation discussed for >3mins.? @ -No Was critical care preformed (if so, how long)? @ -Yes, see above Were there social determinants of health that impacted care today? How? (Homelessness, low income, unemployed, alcoholism, drug addiction, transportation, low edu. Level, literacy, decrease access to med. care, [facility], rehab)? @ -No Was there de-escalation of care discussed even if they declined (Discuss DNR or withdrawal of care, Hospice)? DNR status @ -No What co-morbidities impacted this encounter? (DM, HTN, Smoking, COPD, CAD, Cancer, CVA, ARF, Chemo, Hep., AIDS, mental health diagnosis, sleep apnea, morbid obesity)? @ -Hypertension, recent [facility], scoliosis Was patient admitted / discharged? Hospital course, mention meds given and route, prescriptions, significant lab abnormalities, going to OR and other pertinent info. @ -The patient was seen and evaluated emergency department. Physical exam, the patient was resting in bed without any acute distress. The patient did state that she had continued pain to the right posterior aspect of her right lower abdomen. Vital signs admission were stable. Laboratory workup was obtained and was within normal limits. Because the patient's vague area of complaints, the patient is CT abdomen and pelvis with contrast as well as an x-ray of the right hip pain. I received a call the critical finding on the computed tomography scan that showed a right-sided retroperitoneal hematoma with an area of active bleeding. Due to these findings, the patient will require interventional radiology. It was confirmed that the patient was able to have this procedure done here in the morning and because the patient remained stable with normal hemoglobin, the patient was accepted by Dr. Isaac to be admitted here for this workup. The patient's when told about this stated that she had continued pain in the right side for the last 2 weeks that worsened today. The patient denied any trauma to the area and denied any intervention from her recent [facility]. The patient remained stable and could be admitted to the floor for intervention by interventional radiology in the morning. The patient was told of this plan and was agreeable. The patient was admitted in stable condition. Undiagnosed new problem with uncertain prognosis? @ -No Drug Therapy requiring intensive monitoring for toxicity (Heparin, Nitro, Insulin, Cardizem)? @ -No Were any procedures done? @ -No Diagnosis/symptom? @ -Right-sided retroperitoneal hematoma with an area of active bleeding Acute, or Chronic, or Acute on Chronic? @ -Acute Uncomplicated (without systemic symptoms) or Complicated (systemic symptoms)? @ -Complicated Side effects of treatment? @ -No Exacerbation, Progression, or Severe Exacerbation? @ -No Poses a threat to life or bodily function? How? (Chest pain, [place], [place], pneumonia, PE, COPD, DKA, ARF, appy, cholecystitis, CVA, Diverticulitis, Homicidal, Suicidal, threat to staff... and all critical care pts) @ -Yes, continue bleeding can lead to permanent damage and possible . - Lab Data Result diagrams: 04/15/23 23:46 04/15/23 23:46 Lab Results 04/15/23 04/15/23 Range/Units 23:46 23:46 WBC 8.7 (3.8-10.6) k/uL RBC 3.90 (3.80-5.40) m/uL Hgb 12.3 (11.4-16.0) gm/dL Hct 36.1 (34.0-46.0) % MCV 92.6 (80.0-100.0) fL MCH 31.6 (25.0-35.0) pg MCHC 34.1 (31.0-37.0) g/dL RDW 12.6 (11.5-15.5) % Plt Count 238 (150-450) k/uL MPV 8.6 Neutrophils % 70 % Lymphocytes % 19 % Monocytes % 7 % Eosinophils % 1 % Basophils % 0 % Neutrophils # 6.1 (1.3-7.7) k/uL Lymphocytes # 1.7 (1.0-4.8) k/uL Monocytes # 0.6 (0-1.0) k/uL Eosinophils # 0.1 (0-0.7) k/uL Basophils # 0.0 (0-0.2) k/uL Sodium 128 L (137-145) mmol/L Potassium 3.9 (3.5-5.1) mmol/L Chloride 95 L (98-107) mmol/L Carbon Dioxide 24 (22-30) mmol/L Anion Gap 9 mmol/L BUN 16 (7-17) mg/dL Creatinine 0.96 (0.52-1.04) mg/dL Est GFR (CKD-EPI)AfAm 64 (>60 ml/min/1.73 sqM) Est GFR (CKD-EPI)NonAf 56 (>60 ml/min/1.73 sqM) Glucose 110 H (74-99) mg/dL Calcium 8.7 (8.4-10.2) mg/dL Magnesium 1.7 (1.6-2.3) mg/dL Total Bilirubin 0.8 (0.2-1.3) mg/dL AST 30 (14-36) U/L ALT 22 (4-34) U/L Alkaline Phosphatase 44 (38-126) U/L Total Protein 6.4 (6.3-8.2) g/dL Albumin 3.8 (3.5-5.0) g/dL Lipase 108 (23-300) U/L Critical Care Time Critical Care Time: Yes Total Critical Care Time: 31 Disposition Clinical Impression: Retroperitoneal hematoma Disposition: ADMITTED IP TO THIS [facility] Condition: Stable Is patient prescribed a controlled substance at d/c from ED?: No Referrals: Morena Blue [Primary Care Provider] - 1-2 days Time of Disposition: 02:00 Decision to Admit Reason: Admit from EC Decision Date: 04/16/23 Decision Time: 02:00
[2023-04-15 23:54] LABS: Basophils % (A) 0 %; Eosinophils # (A) 0.1 k/uL (0-0.7); Eosinophils % (A) 1 %; HCT 36.1 % (34.0-46.0); HGB 12.3 gm/dL (11.4-16.0); Lymphocytes # (A) 1.7 k/uL (1.0-4.8); Lymphocytes % (A) 19 %; MCH 31.6 pg (25.0-35.0); MCHC 34.1 g/dL (31.0-37.0); MCV 92.6 fL (80.0-100.0); Mean Platelet Volume 8.6; Monocytes # (A) 0.6 k/uL (0-1.0); Monocytes % (A) 7 %; Neutrophils # (A) 6.1 k/uL (1.3-7.7); Neutrophils % (A) 70 %; Platelet Count 238 k/uL (150-450); RDW 12.6 % (11.5-15.5); WBC 8.7 k/uL (3.8-10.6)
[2023-04-16 00:30] LABS: ALT 22 U/L (4-34); AST 30 U/L (14-36); African American GFR (CKD) 64 (>60 ml/min/1.73 sqM); Albumin 3.8 g/dL (3.5-5.0); Alkaline Phosphatase 44 U/L (38-126); Anion Gap 9 mmol/L; Blood Urea Nitrogen 16 mg/dL (7-17); Calcium 8.7 mg/dL (8.4-10.2); Carbon Dioxide 24 mmol/L (22-30); Chloride 95 mmol/L (98-107); Glucose 110 mg/dL (74-99); Lipase 108 U/L (23-300); Magnesium 1.7 mg/dL (1.6-2.3); Non-African American GFR(CKD) 56 (>60 ml/min/1.73 sqM); Potassium 3.9 mmol/L (3.5-5.1); Sodium 128 mmol/L (137-145); Total Bilirubin 0.8 mg/dL (0.2-1.3); Total Protein 6.4 g/dL (6.3-8.2)
--- NOTE | 2023-04-16 01:18 | CT ---
EXAM: CT Abdomen and Pelvis With Intravenous Contrast CLINICAL HISTORY: CT Reason: Pain TECHNIQUE: Axial computed tomography images of the abdomen and pelvis with intravenous contrast. CTDI is 23.9 mGy and DLP is 1000.9 mGy-cm. This CT exam was performed using one or more of the following dose reduction techniques: automated exposure control, adjustment of the mA and/or kV according to patient size, and/or use of iterative reconstruction technique. COMPARISON: No relevant prior studies available. FINDINGS: Lung bases: Unremarkable. No mass. No consolidation. ABDOMEN: Liver: Unremarkable. No mass. Gallbladder and bile ducts: 13 mm gallstone within a nondilated gallbladder. No surrounding inflammation is seen. Pancreas: Unremarkable. No mass. No ductal dilation. Spleen: Unremarkable. No splenomegaly. Adrenals: Unremarkable. No mass. Kidneys and ureters: Unremarkable. No solid mass. No hydronephrosis. Stomach and bowel: Diverticulosis of the left and sigmoid colon. No acute inflammatory changes are seen involving the bowel. No obstruction. No mucosal thickening. PELVIS: Appendix: No findings to suggest acute appendicitis. Bladder: Unremarkable. No mass. Reproductive: Unremarkable as visualized. ABDOMEN and PELVIS: Intraperitoneal space: Unremarkable. No free air. No significant fluid collection. Bones/joints: Moderate to severe multilevel degenerative changes throughout the lumbar spine including 26 scoliosis. No acute fracture or subluxation is seen. Soft tissues: There is asymmetrical enlargement of the right psoas muscle compared to the left in an approximately 6 mm focal area of contrast extravasation associated with a roughly 4 cm diameter hematoma consistent with active bleeding within a retroperitoneal hematoma. There is a trace amount of adjacent retroperitoneal fluid. Vasculature: Moderate calcification and tortuosity of a nondilated abdominal aorta. Lymph nodes: Unremarkable. No enlarged lymph nodes. IMPRESSION: 1. There is asymmetrical enlargement of the right psoas muscle compared to the left with an approximately 6 mm focal area of contrast extravasation associated with a roughly 4 cm diameter hematoma consistent with active bleeding within a retroperitoneal hematoma. There is a trace amount of adjacent retroperitoneal fluid. 2. Diverticulosis of the left and sigmoid colon. No acute inflammatory changes are seen involving the bowel. <MYCVCSECTION> Communications: 04/16/23 01:33 Call Doctor Regarding Active Bleeding in any site, called Dr. Vogel on 04/16 01:33 (-04:00)
--- NOTE | 2023-04-16 01:41 | XR ---
EXAM: XR Right Hip With Pelvis When Performed, 2 or 3 Views CLINICAL HISTORY: XR right hip pain Reason: Pain TECHNIQUE: Two or three views of the right hip with pelvis when performed. COMPARISON: No relevant prior studies available. FINDINGS: Bones/joints: Unremarkable. No acute fracture. No dislocation. Soft tissues: Unremarkable. IMPRESSION: Normal right hip x-rays.
[2023-04-16] MEDS ORDERED: NALOXONE 0.4 MG/ML 1 ML VIAL IV PRN (02:20)
[2023-04-16] MEDS: MORPHINE SULFATE 4 MG/ML SYRINGE IV PRN ×2 (02:29→07:39)
[2023-04-16 02:37] LABS: Appearance,Urine Clear (Clear); Bilirubin,Urine Negative (Negative); Blood,Urine Negative (Negative); Color,Urine Yellow; Glucose,Urine (UA) Negative (Negative); Ketones,Urine Negative (Negative); Leukocyte Esterase,Urine Negative (Negative); Nitrite,Urine Negative (Negative); Protein,Urine Negative (Negative); Specific Gravity,Urine 1.028 (1.001-1.035); Urobilinogen,Urine <2.0 mg/dL (<2.0)
[2023-04-16] MEDS ORDERED: NITROGLYCERIN SL TABS 0.4 MG TAB SUBLINGUAL PRN (04:23)
[2023-04-16] MEDS ORDERED: SODIUM CHLORIDE 0.9% 1,000 ML IV SCH (04:30)
--- NOTE | 2023-04-16 04:45 | P.HPIM ---
History of Present Illness H&P Date: 04/16/23 Chief Complaint: severe right lower abd pain and flank pain 82 year old female with CAD s/p stents, Afib on eliquis she is coming in for evaluation of sudden onset right lower abd and flank pain , that was radiating to the right lower extremity , severe sharp pain 10/10 in severity that is worse with movement. denies any fever, chills, trauma, falls, changes in urine or bowel habits. no reported skin changes . she has recently admitted and discharged about 2 days ago , where she was treated for ACS , requiring PCI and stenting of the RCA as she was found to have 99% in stent stenosis of the RCA , Cx with 90%, Mid LAD 90%. her horn player suggested that she would probably require some more stents. she otherwise felt very well since her procedure , and not experiencing any more chest pain . she was also started on blood thinners for afib during that hospital stay . Review of Systems Pertinent positives as noted in HPI. All other systems were reviewed and are negative Past Medical History Past Medical History: Coronary Artery Disease (CAD), Hyperlipidemia, Hypertension Additional Past Medical History / Comment(s): scoliosis, [place] 2008 and 04/2023 History of Any Multi-Drug Resistant Organisms: None Reported Past Surgical History: Heart Catheterization With Stent Additional Past Surgical History / Comment(s): lens replaced in eyes, "shots in back for scoliosis". Past Anesthesia/Blood Transfusion Reactions: No Reported Reaction Date of Last Stent Placement:: 04/09/2023 Past Psychological History: No Psychological Hx Reported Smoking Status: Never smoker Past Alcohol Use History: None Reported Past Drug Use History: None Reported - Past Family History Brother(s) Family Medical History: Congestive Heart Failure (CHF), Coronary Artery Disease (CAD) Medications and Allergies Home Medications Medication Instructions Recorded Confirmed Type Brinzolamide/Brimonidine Tart 1 drop RIGHT EYE BID 04/08/23 04/08/23 History [Simbrinza 1%-0.2% Eye Drops] Ezetimibe [Zetia] 10 mg PO HS 04/08/23 04/08/23 History Latanoprost [Latanoprost 0.005%] 1 drop RIGHT EYE HS 04/08/23 04/08/23 History Apixaban [Eliquis] 5 mg PO BID #180 tab 04/10/23 Rx Clopidogrel [Plavix] 75 mg PO DAILY #90 tab 04/11/23 Rx Losartan Potassium [Cozaar] 100 mg PO DAILY #90 tab 04/11/23 Rx Metoprolol Tartrate [Lopressor] 25 mg PO BID #90 tab 04/11/23 Rx Nitroglycerin Sl Tabs [Nitrostat] 0.4 mg SUBLINGUAL Q5M PRN #25 tab 04/11/23 Rx Allergies Allergy/AdvReac Type Severity Reaction Status Date / Time nickel Allergy Rash/Hives Verified 04/12/23 12:39 [id number] Reductase AdvReac Muscle/Joint Verified 04/12/23 12:39 Inhibitor pain all over Physical Exam Vitals: Vital Signs Temp Pulse Pulse Resp BP BP Pulse Ox 04/16/23 03:49 48 L 18 04/16/23 03:34 97.7 F 48 L 18 145/66 98 04/16/23 00:45 54 L 16 153/67 96 Intake and Output 04/15/23 04/15/23 04/16/23 14:59 22:59 06:59 Other: Voiding Method Toilet Weight 74.389 kg Constitutional: No acute distress, conversant, pleasant Eyes: Anicteric sclerae, moist conjunctiva, Pupils equal round reactive to light ENMT: NC/AT Oropharynx clear, no erythema, or exudates Neck: Supple, no masses, or JVD No carotid bruits No thyromegaly Lungs: Clear to auscultation Clear to percussion Normal respiratory effort, no accessory muscle use Cardiovascular: Heart regular in rate and rhythm, No murmurs, gallops, or rubs No peripheral edema Abdominal: Soft Nontender, no guarding, rebound or rigidity Abdomen moving with respiration Normoactive bowel sounds Skin: bruising and echymosis over the right forearm Extremities: No digital cyanosis No clubbing Pedal pulses intact and symmetrical Radial pulses intact and symmetrical No calf tenderness Psychiatric: Alert and oriented to person, place and time Appropriate affect Neuro Muscles Strength 5/5 in all 4 extremities with limited exam over the right lower extremity due to increase pain with movement Sensation to light touch grossly present throughout Cranial nerves II-XII grossly intact Lymphatics: no palpable cervical or supraclavicular lymph nodes Results CBC & Chem 7: 04/15/23 23:46 06/13/23 23:46 Labs: Abnormal Lab Results - Last 24 Hours (Table) 04/15/23 Range/Units 23:46 Sodium 128 L (137-145) mmol/L Chloride 95 L (98-107) mmol/L Glucose 110 H (74-99) mg/dL Thrombosis Risk Factor Assmnt - Choose All That Apply Any of the Below Risk Factors Present?: Yes Each Factor Represents 1 point: Acute ND Each Risk Factor Represents 3 Points: Age 75 years or older Thrombosis Risk Factor Assessment Total Risk Factor Score: 4 Thrombosis Risk Factor Assessment Level: Moderate Risk Assessment and Plan Assessment: 82 year old female with CAD s/p stents , recent stent RCA < 1 week ago, afib on eliquis , I discussed the case with ED doc, and I accepted the admission for right psoas hematoma with possible active bleeding , stable hemoglobin , with anticipated length of stay > 2 midnights right psoas hematoma monitor hemoglobin closely q6hr Hgb stable for now 12.3 platelet s 238 interventional radiology consult NPO hold eliquis IVF hydration with normal saline [address] abd/pelvis , showed 4 cm hematoma in the right psoas muscle with possible active bleeding pain control with morphine 4 mg IVP PRN CAD s/p stents in RCA< 1 week ago P.afib continue plavix cardiology consult can slider monitor vital signs continue zetia continue losartan and metoprolol hold eliquis 2/2 psoas hematoma full code DVT PPX mechanical 2/2 psoas hematoma
[2023-04-16 07:19] LABS: HCT 36.4 % (34.0-46.0); HGB 12.3 gm/dL (11.4-16.0); MCH 32.4 pg (25.0-35.0); MCHC 33.9 g/dL (31.0-37.0); MCV 95.7 fL (80.0-100.0); Mean Platelet Volume 8.3; Platelet Count 238 k/uL (150-450); RDW 12.4 % (11.5-15.5)
[2023-04-16] MEDS ORDERED: DORZOLAMIDE HCL 2% DROPS 10 ML BTL RIGHT EYE SCH (09:00)
[2023-04-16] MEDS ORDERED: METOPROLOL TARTRATE 25 MG TAB PO SCH (09:00)
[2023-04-16] MEDS ORDERED: CLOPIDOGREL 75 MG TAB PO SCH (09:00)
[2023-04-16] MEDS ORDERED: LOSARTAN 50 MG TAB PO SCH ×2 (09:00→21:00)
[2023-04-16] MEDS ORDERED: BRIMONIDINE TARTRATE 0.2% DROPS 5 ML BTL RIGHT EYE SCH (09:00)
--- NOTE | 2023-04-16 10:05 | P.CRDCN ---
History of Present Illness Consult date: 04/16/23 Reason for Consult (text): Recent stent and deep muscle hematoma History of present illness: History of present illness: This is an 82-year-old female with past medical history of myocardial infarction and 4 stents placed in 2008 in [place], reported carotid stenosis, atrial fibrillation paroxysmal, hypertension. Patient had a recent hospitalization at [facility] and was discharged on 69. She was treated at that time for non-ST elevated myocardial infarction status post stenting of the RCA with plan for staged stenting of the LAD and possible circumflex with Dr. Infante. Patient was also treated for paroxysmal atrial fibrillation. She was discharged home on eliquis and Plavix. Patient states that she was doing fine when she left the hospital and then she returned on 04/12 complaining of dizziness and almost passing out. Orthostatics were checked and those were negative. Her hemoglobin was 13.8 and patient was discharged home. She states that yesterday she developed significant right lower quadrant and right hip area pain that radiated into her back and down her right leg. She had some nausea without vomiting. Patient came into [facility] emergency center and was found to have retroperitoneal bleeding and initially eliquis and Plavix were placed on hold. She has been subsequent a seen by vascular surgery and Plavix has been resumed. Patient denies having any chest pain. Patient was reported to be in a junctional rhythm and nurse has been instructed to obtain EKG if this occurs again. EKG sinus rhythm at 60 bpm, telemetry sinus rhythm in the 40s Hip x-ray normal CAT scan of the abdomen and pelvis revealed asymmetrical enlargement of a right so as muscle compared to the left with proximal Lasix millimeter focal area of contrast extravasation associated with roughly 4 cm diameter hematoma consistent with active bleeding within the retroperitoneal hematoma. Trace amount of adjacent retroperitoneal fluid. Diverticulosis. CBC within normal limits. Hemoglobin is 12.3. Sodium 128, potassium 3.9, chloride 95, CO2 24, BUN 16 creatinine 0.96. Blood sugar 110. Magnesium 1.7, liver function tests are normal. Urinalysis negative. Echocardiogram 04/09/2023: EF 50-55%, [id number] mitral regurgitation. Home cardiac medications: Eliquis 5 mg twice daily, Plavix 75 mg daily, Zetia 10 mg at bedtime, losartan 100 mg daily, Lopressor 25 mg twice daily, Nitrostat as needed Review Of Systems: At the time of my evaluation: Constitutional: No fever, no chills. No weakness, fatigue or lethargy. EENT: No headache. No dizziness. Lungs: No shortness of breath, cough, no sputum production. No wheezing. Cardiovascular: No chest pain, no lower extremity edema. No palpitations. No paroxysmal nocturnal dyspnea. No orthopnea. No lightheadedness or dizziness. No syncopal episodes. Abdominal: Right lower quadrant abdominal pain. No nausea, vomiting. No diarrhea. No constipation. No bloody or tarry stools. Genitourinary: No dysuria.. No urinary retention. Musculoskeletal: No myalgias. No muscle weakness, no frequent falls. No back pain. No neck pain. Integumentary: No wounds. No rash. No unusual bruising. Neurologic: No aphasia. No facial droop. No change in mentation. No head injury. No headache. Physical examination: Gen: This is an 82 year old female. She is resting on ER stretcher and appears to be comfortable and in no acute distress VS: reviewed HEENT: Head is atraumatic, normocephalic. Pupils equal, round. Sclerae is anicteric. NECK: Supple. No JVD. LUNGS: Clear to auscultation. No wheezes or rhonchi. No intercostal retract ions. HEART: Regular rate and rhythm. Systolic murmur. ABDOMEN: Soft EXTREMITIES: No pedal edema. No calf tenderness. NEUROLOGICAL: Patient is awake, alert and oriented x3. Assessment: Retroperitoneal hematoma on CAT scan A. fib with RVR, paroxysmal atrial fibrillation Possible junctional rhythm and bradycardia Recent Non-ST elevated myocardial infarction status post stent of the RCA with plan for staged of the LAD and possible circumflex Hypertension Hyperlipidemia unable to tolerate statin History of coronary artery disease and stent placement 4 Hyponatremia Plan: Continue patient's home cardiac medications including Plavix and start patient on aspirin 81 mg daily Hold eliquis Hold Lopressor for now due to bradycardia Monitor CBC closely Further recommendations to follow based upon clinical course Thank you kindly for this consultation. Nurse practitioner note has been reviewed, I agree with documented findings and plan of care. Patient was seen and examined. Past Medical History Past Medical History: Coronary Artery Disease (CAD), Hyperlipidemia, Hypertension Additional Past Medical History / Comment(s): scoliosis, [place] 2008 and 04/2023 History of Any Multi-Drug Resistant Organisms: None Reported Past Surgical History: Heart Catheterization With Stent Additional Past Surgical History / Comment(s): lens replaced in eyes, "shots in back for scoliosis". Past Anesthesia/Blood Transfusion Reactions: No Reported Reaction Date of Last Stent Placement:: 04/09/2023 Past Psychological History: No Psychological Hx Reported Smoking Status: Never smoker Past Alcohol Use History: None Reported Past Drug Use History: None Reported - Past Family History Brother(s) Family Medical History: Congestive Heart Failure (CHF), Coronary Artery Disease (CAD) Medications and Allergies Home Medications Medication Instructions Recorded Confirmed Type Brinzolamide/Brimonidine Tart 1 drop RIGHT EYE BID 04/08/23 04/16/23 History [Simbrinza 1%-0.2% Eye Drops] Ezetimibe [Zetia] 10 mg PO HS 04/08/23 04/16/23 History Latanoprost [Latanoprost 0.005%] 1 drop RIGHT EYE HS 04/08/23 04/16/23 History Apixaban [Eliquis] 5 mg PO BID #180 tab 04/10/23 04/16/23 Rx Clopidogrel [Plavix] 75 mg PO DAILY #90 tab 04/11/23 04/16/23 Rx Losartan Potassium [Cozaar] 100 mg PO DAILY #90 tab 04/11/23 04/16/23 Rx Metoprolol Tartrate [Lopressor] 25 mg PO BID #90 tab 04/11/23 04/16/23 Rx Nitroglycerin Sl Tabs [Nitrostat] 0.4 mg SUBLINGUAL Q5M PRN #25 tab 04/11/23 04/16/23 Rx Allergies Allergy/AdvReac Type Severity Reaction Status Date / Time nickel Allergy Rash/Hives Verified 04/16/23 08:24 [id number] Reductase AdvReac Muscle/Joint Verified 04/16/23 08:24 Inhibitor pain all over Physical Exam Vitals: Vital Signs Temp Pulse Pulse Resp BP BP Pulse Ox 04/16/23 08:00 50 L 16 120/60 98 04/16/23 07:46 979.2 F H 56 L 16 147/72 99 04/16/23 03:49 48 L 18 04/16/23 03:34 97.7 F 48 L 18 145/66 98 04/16/23 00:45 54 L 16 153/67 96 Intake and Output 04/15/23 04/16/23 04/16/23 22:59 06:59 14:59 Other: Voiding Method Toilet Weight 74.389 kg Results 04/16/23 06:34 04/15/23 23:46 Cardiac Enzymes 04/15/23 Range/Units 23:46 AST 30 (14-36) U/L CBC 04/15/23 04/16/23 Range/Units 23:46 06:34 WBC 8.7 6.0 (3.8-10.6) k/uL RBC 3.90 3.80 (3.80-5.40) m/uL Hgb 12.3 12.3 (11.4-16.0) gm/dL Hct 36.1 36.4 (34.0-46.0) % Plt Count 238 238 (150-450) k/uL Comprehensive Metabolic Panel 04/15/23 Range/Units 23:46 Sodium 128 L (137-145) mmol/L Potassium 3.9 (3.5-5.1) mmol/L Chloride 95 L (98-107) mmol/L Carbon Dioxide 24 (22-30) mmol/L BUN 16 (7-17) mg/dL Creatinine 0.96 (0.52-1.04) mg/dL Glucose 110 H (74-99) mg/dL Calcium 8.7 (8.4-10.2) mg/dL AST 30 (14-36) U/L ALT 22 (4-34) U/L Alkaline Phosphatase 44 (38-126) U/L Total Protein 6.4 (6.3-8.2) g/dL Albumin 3.8 (3.5-5.0) g/dL Current Medications Generic Name Dose Route Start Last Admin Trade Name Freq PRN Reason Stop Dose Admin Brimonidine Tartrate 1 drops 04/16/23 09:00 Brimonidine Tartrate 0.2% Drops 5 Ml Btl RIGHT EYE BID [facility] Clopidogrel Bisulfate 75 mg 04/16/23 09:00 Clopidogrel 75 Mg Tab PO DAILY ROBYN Dorzolamide HCl 1 drops 04/16/23 09:00 Dorzolamide Hcl 2% Drops 10 Ml Btl RIGHT EYE BID [facility] Ezetimibe 10 mg 04/16/23 21:00 Ezetimibe 10 Mg Tab PO HS ROBYN Sodium Chloride 1,000 mls @ 75 mls/hr 04/16/23 04:30 04/16/23 07:40 Saline 0.9% IV 75 mls/hr .[id number] ROBYN Administration Latanoprost 1 drops 04/16/23 21:00 Latanoprost 0.005% Ophth Drops 2.5 Ml Btl RIGHT EYE HS [facility] Losartan Potassium 100 mg 04/16/23 09:00 Losartan 50 Mg Tab PO DAILY [facility] Metoprolol Tartrate 25 mg 04/16/23 09:00 Metoprolol Tartrate 25 Mg Tab PO BID [facility] Morphine Sulfate 4 mg 04/16/23 02:20 04/16/23 07:39 Morphine Sulfate 4 Mg/Ml Syringe IV 4 mg Q4HR PRN Administration Severe Pain (Scale 7 to 10) Naloxone HCl 0.2 mg 04/16/23 02:20 Naloxone 0.4 Mg/Ml 1 Ml Vial IV Q2M PRN Opioid Reversal Nitroglycerin 0.4 mg 04/16/23 04:23 Nitroglycerin Sl Tabs 0.4 Mg Tab SUBLINGUAL Q5M PRN Chest Pain Intake and Output 04/15/23 04/16/23 04/16/23 22:59 06:59 14:59 Other: Voiding Method Toilet Weight 74.389 kg 04/16/23 06:34 04/15/23 23:46
--- NOTE | 2023-04-16 12:21 | P.GSCN ---
History of Present Illness Consult date: 04/16/23 Reason for Consult: Deep muscle hematoma Requesting physician: Ronnie Carr History of present illness: This is a 82-year-old female who presented to the emergency department brought in by EMS for complaints of pain in her right lower abdomen and back. She states that was acute onset yesterday evening. She has a past medical history including coronary artery disease status post DC. Patient came into the [facility] department earlier this month with complaints of chest pain she went for cardiac catheterization and stent placement on 04/09/2023 with access through the right radial artery. She states she came back on the following Friday with complaints of dizziness however they thought that it was related to her new medications. She was started on losartan, Ahlquist, aspirin and Plavix. She denies any injuries, no recent falls. No previous history of bleeds. She had a CT of the abdomen and pelvis with contrast that reported asymmetrical enlargement of the right psoas muscle compartment to left with an approximately 6 mm focal area of contrast extrication associated with roughly 4 cm diameter hematoma consistent with active bleeding within a retroperitoneal hematoma. There is a trace amount of adjacent retroperitoneal fluid. Diverticulosis of left and sigmoid colon. No acute inflammatory changes seen involving the bowel. She states that pain is improving it is a deep pain it is not with palpation or touch. She was having difficulty lifting her right lower extremity getting in and out of bed. She also states that is improving as well. She denies any dizziness, shortness of breath, chest pain, abdominal pain, nausea or vomiting. Hemoglobin on admission was 12.3 and repeat today is 12.3. Review of Systems A 14 point review systems was completed all pertinent positives and negatives as stated in the HPI. Past Medical History Past Medical History: Coronary Artery Disease (CAD), Hyperlipidemia, Hypertension Additional Past Medical History / Comment(s): scoliosis, [place] 2008 and 04/2023 History of Any Multi-Drug Resistant Organisms: None Reported Past Surgical History: Heart Catheterization With Stent Additional Past Surgical History / Comment(s): lens replaced in eyes, "shots in back for scoliosis". Past Anesthesia/Blood Transfusion Reactions: No Reported Reaction Date of Last Stent Placement:: 04/09/2023 Past Psychological History: No Psychological Hx Reported Smoking Status: Never smoker Past Alcohol Use History: None Reported Past Drug Use History: None Reported - Past Family History Brother(s) Family Medical History: Congestive Heart Failure (CHF), Coronary Artery Disease (CAD) Medications and Allergies Home Medications Medication Instructions Recorded Confirmed Type Brinzolamide/Brimonidine Tart 1 drop RIGHT EYE BID 04/08/23 04/16/23 History [Simbrinza 1%-0.2% Eye Drops] Ezetimibe [Zetia] 10 mg PO HS 04/08/23 04/16/23 History Latanoprost [Latanoprost 0.005%] 1 drop RIGHT EYE HS 04/08/23 04/16/23 History Apixaban [Eliquis] 5 mg PO BID #180 tab 04/10/23 04/16/23 Rx Clopidogrel [Plavix] 75 mg PO DAILY #90 tab 04/11/23 04/16/23 Rx Losartan Potassium [Cozaar] 100 mg PO DAILY #90 tab 04/11/23 04/16/23 Rx Metoprolol Tartrate [Lopressor] 25 mg PO BID #90 tab 04/11/23 04/16/23 Rx Nitroglycerin Sl Tabs [Nitrostat] 0.4 mg SUBLINGUAL Q5M PRN #25 tab 04/11/23 04/16/23 Rx Allergies Allergy/AdvReac Type Severity Reaction Status Date / Time nickel Allergy Rash/Hives Verified 04/16/23 08:24 [id number] Reductase AdvReac Muscle/Joint Verified 04/16/23 08:24 Inhibitor pain all over Surgical - Exam Vital Signs Pulse Resp BP Pulse Ox 54 L 16 153/67 96 04/16/23 00:45 04/16/23 00:45 04/16/23 00:45 04/16/23 00:45 General appearance: The patient is alert, oriented, appears in no acute distress. HET: Head is normocephalic and atraumatic. Pupils are equal and reactive. Neck: Supple. Heart: Regular. Lungs: Equal expansion, normal respiratory effort. Abdomen: Soft, nontender, nondistended. Back: Right flank tenderness to palpation. Extremities: Normal skin color and turgor. Neurological: No focal deficits. Strength and sensation are grossly intact. Results - Labs 04/16/23 06:34 04/15/23 23:46 Abnormal Lab Results - Last 24 Hours (Table) 04/15/23 Range/Units 23:46 Sodium 128 L (137-145) mmol/L Chloride 95 L (98-107) mmol/L Glucose 110 H (74-99) mg/dL Diabetes panel 04/15/23 Range/Units 23:46 Sodium 128 L (137-145) mmol/L Potassium 3.9 (3.5-5.1) mmol/L Chloride 95 L (98-107) mmol/L Carbon Dioxide 24 (22-30) mmol/L BUN 16 (7-17) mg/dL Creatinine 0.96 (0.52-1.04) mg/dL Glucose 110 H (74-99) mg/dL Calcium 8.7 (8.4-10.2) mg/dL AST 30 (14-36) U/L ALT 22 (4-34) U/L Alkaline Phosphatase 44 (38-126) U/L Total Protein 6.4 (6.3-8.2) g/dL Albumin 3.8 (3.5-5.0) g/dL Calcium panel 04/15/23 Range/Units 23:46 Calcium 8.7 (8.4-10.2) mg/dL Albumin 3.8 (3.5-5.0) g/dL Pituitary panel 04/15/23 Range/Units 23:46 Sodium 128 L (137-145) mmol/L Potassium 3.9 (3.5-5.1) mmol/L Chloride 95 L (98-107) mmol/L Carbon Dioxide 24 (22-30) mmol/L BUN 16 (7-17) mg/dL Creatinine 0.96 (0.52-1.04) mg/dL Glucose 110 H (74-99) mg/dL Calcium 8.7 (8.4-10.2) mg/dL Adrenal panel 04/15/23 Range/Units 23:46 Sodium 128 L (137-145) mmol/L Potassium 3.9 (3.5-5.1) mmol/L Chloride 95 L (98-107) mmol/L Carbon Dioxide 24 (22-30) mmol/L BUN 16 (7-17) mg/dL Creatinine 0.96 (0.52-1.04) mg/dL Glucose 110 H (74-99) mg/dL Calcium 8.7 (8.4-10.2) mg/dL Total Bilirubin 0.8 (0.2-1.3) mg/dL AST 30 (14-36) U/L ALT 22 (4-34) U/L Alkaline Phosphatase 44 (38-126) U/L Total Protein 6.4 (6.3-8.2) g/dL Albumin 3.8 (3.5-5.0) g/dL Assessment and Plan Assessment: 1. Right psoas muscle of retroperitoneal hematoma with active bleeding seen on CAT scan 2. Coronary artery disease with recent non-ST elevated myocardial infarction status post recent stent of the RCA on Plavix 3. Paroxysmal atrial fibrillation on Eliquis Plan: 1. Continue symptomatic and supportive care 2. Hold Eliquis. Discussed reversing Eliquis with cardiology however they do not recommend at this time due to recent DC 3. Cardiology requesting to continue Plavix due to recent stent, and aspirin. Agree with plan. 4. Patient is hemodynamically stable, no plans at this time for any vascular surgical intervention. We will continue to monitor closely. Thank you for this consultation, we will continue to follow. The impression and plan of care has been dictated as directed. I performed a history and examination of this patient, discussed the same with the dictator. I agree with the dictator's note ,documented as a scribe. Any additional findings or plans will be noted.
--- NOTE | 2023-04-16 14:37 | P.DS ---
Providers Date of admission: 04/16/23 02:21 Attending physician: Anu Isaac MD Consults: 04/16/23 05:02 Consult Physician Routine Consulting Provider: Richard Infante Consult Reason/Comments: recent stent, currently deep muscle hematoma Do you want consulting provider notified?: Yes 04/16/23 08:52 Consult Physician Stat Consulting Provider: Love Wade Consult Reason/Comments: retroperitoneal bleed Do you want consulting provider notified?: Yes 04/16/23 09:32 Consult Physician Routine Consulting Provider: [facility] Consult Reason/Comments: recent stent, deep muscle hematoma Do you want consulting provider notified?: Already Contacted Primary care physician: [facility] Hospital Course: Discharge Diagnosis: Right psoas hematoma likely due Eliquis Coronary artery disease status post stents Paroxysmal atrial fibrillation Bradycardia Hospital Course: Patient is a 82-year-old female with a past medical history of coronary disease status post stents, atrial fibrillation on all of was presented to the ED for evaluation of sudden onset right lower abdominal and flank pain. Patient was recently admitted to our facility and discharged 2 days ago. She is treated for ACS. She required PCI. She was also found to have atrial fibrillation. Patient was discharged on aspirin and Plavix and Eliquis. On this visit when patient is in the ED CT showed 4 cm hematoma in the right psoas muscle with possible active bleeding. Patient was seen by vascular surgery who recommended no intervention as patient stable and hemoglobin stable. Cardiology said okay to stop the Eliquis. Patient will need to continue with aspirin and Plavix. At the time of discharge patient told me that her pain had resolved. She really wanted to go home. I did discuss the increased risk of stroke with stopping Eliquis. However I told her that risk of bleeding outweighed its benefits for her. Patient verbalized understanding. Patient deemed stable for discharge with close follow up with cardiology. Cardiology also discontinued patient's metoprolol due to bradycardia Patient seen and examined at bedside.[] Vital signs reviewed and stable. General: [non toxic], [no distress], [appears at stated age] Derm: [warm], [dry] Head: [atraumatic], [normocephalic], [symmetric] Eyes: [EOMI], [no lid lag], [anicteric sclera] Mouth: [no lip lesion], [mucus membranes moist] Cardiovascular: [S1S2 reg], [no murmur], [positive posterior tibial pulse bilateral], Lungs: [CTA bilateral], [no rhonchi, no rales] , [no accessory muscle use] Abdominal: [soft], [ nontender to palpation], [no guarding], [no appreciable organomegaly] Ext: [no gross muscle atrophy], [no edema], [no contractures] Neuro: [ CN II-XI grossly intact], [no focal neuro deficits] Psych: [Alert], [oriented], [appropriate affect] A total of [33] minutes of time were spent preparing this complex discharge summary . Patient Condition at Discharge: Stable Plan - Discharge Summary Discharge Rx Participant: No New Discharge Prescriptions: New Aspirin 81 mg PO DAILY tab Continue Latanoprost [Latanoprost 0.005%] 1 drop RIGHT EYE HS Ezetimibe [Zetia] 10 mg PO HS Nitroglycerin Sl Tabs [Nitrostat] 0.4 mg SUBLINGUAL Q5M PRN #25 tab PRN Reason: Chest Pain Clopidogrel [Plavix] 75 mg PO DAILY #90 tab Brinzolamide/Brimonidine Tart [Simbrinza 1%-0.2% Eye Drops] 1 drop RIGHT EYE BID Losartan Potassium [Cozaar] 100 mg PO DAILY #90 tab Discontinued Apixaban [Eliquis] 5 mg PO BID #180 tab Metoprolol Tartrate [Lopressor] 25 mg PO BID #90 tab Discharge Medication List Brinzolamide/Brimonidine Tart [Simbrinza 1%-0.2% Eye Drops] 1 drop RIGHT EYE BID 04/08/23 [History] Ezetimibe [Zetia] 10 mg PO HS 04/08/23 [History] Latanoprost [Latanoprost 0.005%] 1 drop RIGHT EYE HS 04/08/23 [History] Clopidogrel [Plavix] 75 mg PO DAILY #90 tab 04/11/23 [Rx] Losartan Potassium [Cozaar] 100 mg PO DAILY #90 tab 04/11/23 [Rx] Nitroglycerin Sl Tabs [Nitrostat] 0.4 mg SUBLINGUAL Q5M PRN #25 tab 04/11/23 [Rx] Aspirin 81 mg PO DAILY tab 04/16/23 [Rx] Follow up Appointment(s)/Referral(s): [facility] [Primary Care Provider] - 1-2 days Richard Infante MD [STAFF PHYSICIAN] - 1 Week Discharge Disposition: HOME SELF-CARE
[2023-04-16 16:35] VITALS: BP 122/58; PULSE 54; RESP 18; TEMP 98.6
[2023-04-16] MEDS ORDERED: LATANOPROST 0.005% OPHTH DROPS 2.5 ML BTL RIGHT EYE SCH (21:00)
[2023-04-16] MEDS ORDERED: EZETIMIBE 10 MG TAB PO SCH (21:00)
[2023-04-17] MEDS ORDERED: ASPIRIN 81 MG PO SCH (09:00)
[2023-04-17] MEDS ORDERED: CLOPIDOGREL 75 MG TAB PO SCH (09:00)
== END 2023-04-16 17:07 | disposition home or self-care (01) ==
LOC: EC 23:34 → 5NMEDONC 04-16 02:21 → INTOOBSV 04-16 02:21 → UNDODISIN 04-16 17:07
PROVIDERS: ADMIT Internal Medicine; ATTEND Internal Medicine
DX: K66.1 Hemoperitoneum (principal); I25.10 Atherosclerotic heart disease of native coronary artery without angina pectoris; E87.1 Hypo-osmolality and hyponatremia; K57.30 Diverticulosis of large intestine without perforation or abscess without bleeding; M25.551 Pain in right hip; Z95.5 Presence of coronary angioplasty implant and graft; I48.0 Paroxysmal atrial fibrillation; R00.1 Bradycardia, unspecified; I34.0 Nonrheumatic mitral (valve) insufficiency; I10 Essential (primary) hypertension; E78.5 Hyperlipidemia, unspecified; I65.29 Occlusion and stenosis of unspecified carotid artery; I25.2 Old myocardial infarction; M41.9 Scoliosis, unspecified; Z98.890 Other specified postprocedural states; Z82.49 Family history of ischemic heart disease and other diseases of the circulatory system; Z79.01 Long term (current) use of anticoagulants; Z79.02 Long term (current) use of antithrombotics/antiplatelets; Z79.899 Other long term (current) drug therapy; Z88.8 Allergy status to other drugs, medicaments and biological substances; Z91.09 Other allergy status, other than to drugs and biological substances
CPT/HCPCS: 96376; 96374; 99291; 36415; 93005; 80053; 83690; 83735; 85025; 85027; 81003; 73502; 74177; G0378; J2270 ×2; Q9967